=== PATIENT | male | born 1965 | race African-American/Black ===

== ENCOUNTER 2017-03-29 23:28 | Inpatient (IN) | payer SELFPAY ==
[~2017-03-29] VITALS: Ht 188 cm; Wt 68.0 kg
[2017-03-30] MEDS ORDERED: SODIUM CHLORIDE 0.9% 1,000 ML IV ONE (00:01)
[2017-03-30 00:19] LABS: EOSINOPHILS % 0.6 % (0.0-5.0); HEMATOCRIT. 36.5 % (42.0-52.0); HEMOGLOBIN. 12.5 g/dL (14.0-18.0); LYMPHOCYTES % 21.4 % (20.0-50.0); MEAN CORPUSCULAR HEMOGLOBIN 35.7 pg (28.0-32.0); MEAN CORPUSCULAR VOLUME 104.6 fL (80.0-94.0); MEAN PLATELET VOLUME 7.2 fl (7.4-10.4); MONOCYTES % 7.3 % (2.0-8.0); NEUTROPHILS % 69.7 % (40.0-76.0); PLATELET 261 x1000/uL (130-400); RED BLOOD CELL COUNT 3.49 mill/uL (4.7-6.1); RED CELL DISTRIBUTION WIDTH 13.4 % (11.6-14.6)
[2017-03-30 00:23] LABS: CLARITY URINE CLEAR (CLEAR); COLOR URINE YELLOW (YELLOW); GLUCOSE URINE NEGATIVE (NEGATIVE); KETONES URINE NEGATIVE (NEGATIVE); LEUKOCYTE ESTERASE URINE NEGATIVE (NEGATIVE); NITRITE URINE NEGATIVE (NEGATIVE); OCCULT BLOOD URINE NEGATIVE (NEGATIVE); PROTEIN URINE 1+ (NEGATIVE); SPECIFIC GRAVITY URINE 1.017 (1.005-1.030)
[2017-03-30 00:35] LABS: *AMPHETAMINES SCREEN URINE NEGATIVE (NEGATIVE); *BARBITURATES SCREEN URINE NEGATIVE (NEGATIVE); *BENZODIAZEPINES SCREEN URINE NEGATIVE (NEGATIVE); *COCAINE SCREEN URINE PRESUMTIVE POSITIVE (NEGATIVE); CANNABINOID URINE SCREEN PRESUMTIVE POSITIVE (NEGATIVE); METHADONE URINE SCREEN NEGATIVE (NEGATIVE); OPIATES URINE SCREEN NEGATIVE (NEGATIVE); PHENCYCLIDINE URINE SCREEN NEGATIVE (NEGATIVE)
[2017-03-30 00:37] LABS: CARBON DIOXIDE 28 mEq/L (21-32); CHLORIDE 99 mEq/L (98-107); ETHANOL BLOOD 251 mg/dL; TROPONIN I 0.02 ng/mL (0.00-0.04)
[2017-03-30] MEDS ORDERED: SODIUM CHLORIDE 0.9% 1,000 ML IV SCH (01:08)
[2017-03-30] MEDS ORDERED: DIPHENHYDRAMINE 50MG/ML VIAL IV PRN (05:15)
[2017-03-30] MEDS ORDERED: GUAIFENESIN 200MG/10ML SUGAR FREE UDC PO PRN (05:15)
[2017-03-30] MEDS ORDERED: ACETAMINOPHEN 325MG TABLET PO PRN (05:15)
[2017-03-30] MEDS ORDERED: ONDANSETRON HCL 4MG/2ML VIAL IV PRN (05:15)
[2017-03-30] MEDS ORDERED: HYDRALAZINE 20MG/ML VIAL IV PRN (05:15)
[2017-03-30] MEDS ORDERED: MAGNESIUM/ALUMINUM HYDROXIDE/SIMETHICONE 30ML UDC PO PRN (05:15)
[2017-03-30] MEDS ORDERED: LORAZEPAM 2MG/ML CPJ IV PRN (05:15)
[2017-03-30] MEDS: HYDRALAZINE 20MG/ML VIAL IV SCH ×3 (06:00→18:49)
[2017-03-30] MEDS: CLONIDINE 0.1MG TABLET PO PRN ×2 (06:31→21:09)
[2017-03-30 08:00] VITALS: BP 144/83
[2017-03-30 09:08] VITALS: BP 144/83
[2017-03-30] MEDS ORDERED: LORAZEPAM 1MG TABLET PO PRN (09:15)
[2017-03-30] MEDS ORDERED: LISI-604 PO (10:01)
[2017-03-30] MEDS ORDERED: PNEUMOCOCCAL 23-VAL P-SAC VAC 0.5 ML IM ONE (10:15)
[2017-03-30] MEDS ORDERED: INFLUENZA VIRUS VACCINE 0.5ML SYR IM ONE (10:15)
[2017-03-30] MEDS: LISINOPRIL 20MG TABLET PO SCH (10:43)
[2017-03-30] MEDS: SODIUM CHLORIDE 0.9% INJ 3ML FLUSH IVF SCH ×3 (10:44→21:14)
[2017-03-30 12:00] VITALS: BP 117/81
[2017-03-30] MEDS ORDERED: DEXTROSE 50% WATER 50ML SYRINGE IV PRN (15:45)
[2017-03-30 16:00] VITALS: BP 145/87
[2017-03-30] MEDS: BLOOD SUGAR DIAGNOSTIC STRIP TEST SCH ×2 (16:45→21:03)
[2017-03-30] MEDS: INSULIN LISPRO 100 UNITS/ML SUBCUT SCH ×2 (17:15→21:12)
[2017-03-30 20:00] VITALS: BP 172/102
[2017-03-31] VITALS: BP 148/92
[2017-03-31] MEDS: THIAMINE HCL 100MG TABLET PO SCH ×2 (00:24→10:17)
[2017-03-31] MEDS: HYDRALAZINE 20MG/ML VIAL IV SCH ×3 (00:27→12:25)
[2017-03-31] MEDS ORDERED: LOPERAMIDE HCL 2MG CAPSULE PO NR ×2 (00:45→06:15)
[2017-03-31 04:00] VITALS: BP 161/97
[2017-03-31] MEDS ORDERED: CHLORDIAZEPOXIDE 25MG CAPSULE PO SCH (06:00)
[2017-03-31] MEDS: BLOOD SUGAR DIAGNOSTIC STRIP TEST SCH ×2 (06:12→12:26)
[2017-03-31] MEDS: INSULIN LISPRO 100 UNITS/ML SUBCUT SCH ×2 (06:12→12:26)
[2017-03-31] MEDS: SODIUM CHLORIDE 0.9% INJ 3ML FLUSH IVF SCH (06:41)
[2017-03-31 08:00] VITALS: BP 137/84
[2017-03-31] MEDS: LISINOPRIL 20MG TABLET PO SCH (10:17)
[2017-03-31 12:00] VITALS: BP 142/86
[2017-03-31] MEDS ORDERED: LISINOPRIL 20MG TABLET PO NR (13:15)
[2017-03-31 14:49] VITALS: BP 142/86
[2017-03-31 16:00] VITALS: BP 118/72
== END 2017-03-31 15:25 | disposition home or self-care (01) | DRG 775 ==
LOC: ER 23:28 → 5WST 03-30 01:10 → EDBEDREQ 03-30 01:13 → EDBEDREQTM 03-30 01:13 → ENRESERV 03-30 06:44
PROVIDERS: ADMIT Internal Medicine; ATTEND Internal Medicine
DX: F10.230 Alcohol dependence with withdrawal, uncomplicated (principal); E11.22 Type 2 diabetes mellitus with diabetic chronic kidney disease; Y90.9 Presence of alcohol in blood, level not specified; I12.9 Hypertensive chronic kidney disease with stage 1 through stage 4 chronic kidney disease, or unspecified chronic kidney disease; G40.909 Epilepsy, unspecified, not intractable, without status epilepticus; N18.9 Chronic kidney disease, unspecified; Z88.0 Allergy status to penicillin
CPT/HCPCS: 36415; 70450; 71010; 80053; 80305; 81001; 82962; 83690; 84484; 85025; 90686; 90732; 93005; 96360; 96361; 99285; G0482; J0360; J1815; J7030

== ENCOUNTER 2018-02-28 08:42 | Inpatient (IN) | payer MEDICAID ==
[~2018-02-28] VITALS: Ht 188 cm; Wt 61.2 kg
[~2018-02-28 08:42] MED LIST: AMLO10TA80 PO; ESOM40CA PO; HYDR25TA PO; LISI40TA4 PO; METF-416 PO; METO1TAB26 PO; OMEP-265 PO; PROT40 PO; TRAM50TA3 PO; ZOLP5TAB2 PO
[2018-02-28] MEDS ORDERED: SODIUM CHLORIDE 0.9% 1000ML BAG (SEPSIS BOLUS) IV ONE (09:15)
[2018-02-28] MEDS ORDERED: PANTOPRAZOLE 80 MG in SODIUM CHLORIDE 0.9% 100 ML IV SCH (09:15)
[2018-02-28] MEDS ORDERED: PANTOPRAZOLE SODIUM 40 MG/VIAL IV ONE ×3 (09:15→10:53)
[2018-02-28] MEDS ORDERED: ONDANSETRON HCL 4MG/2ML INJ IV ONE (09:30)
[2018-02-28 09:50] LABS: BASOPHILS % 0.6 % (0.0-2.0); EOSINOPHILS % 0.5 % (0.0-5.0); HEMATOCRIT. 31.1 % (42.0-52.0); HEMOGLOBIN. 10.7 g/dL (14.0-18.0); LYMPHOCYTES % 18.7 % (20.0-50.0); MEAN CORPUSCULAR VOLUME 104.5 fL (80.0-94.0); MEAN PLATELET VOLUME 7.3 fl (7.4-10.4); NEUTROPHILS % 72.2 % (40.0-76.0); PLATELET 277 x1000/uL (130-400); RED BLOOD CELL COUNT 2.97 mill/uL (4.7-6.1); RED CELL DISTRIBUTION WIDTH 14.6 % (11.6-14.6)
[2018-02-28 09:58] LABS: INR 1.1; PROTHROMBIN TIME 10.9 sec (9.1-11.1)
[2018-02-28 10:02] LABS: CHLORIDE 91 mEq/L (98-107); ETHANOL BLOOD 210 mg/dL
[2018-02-28] MEDS ORDERED: SODIUM CHLORIDE 0.9% 1,000 ML IV ONE (10:40)
[2018-02-28] MEDS ORDERED: LEVOFLOXACIN 750MG PREMIX 150 ML IV ONE (10:45)
[2018-02-28] MEDS ORDERED: MAGNESIUM 4 G PREMIX 100 ML IV ONE (10:45)
[2018-02-28 12:42] LABS: CLARITY URINE CLEAR (CLEAR); COLOR URINE YELLOW (YELLOW); KETONES URINE NEGATIVE (NEGATIVE); LEUKOCYTE ESTERASE URINE NEGATIVE (NEGATIVE); NITRITE URINE NEGATIVE (NEGATIVE); OCCULT BLOOD URINE TRACE (NEGATIVE); PROTEIN URINE TRACE (NEGATIVE); SPECIFIC GRAVITY URINE 1.006 (1.005-1.030)
[2018-02-28] MEDS ORDERED: SODIUM CHLORIDE 0.9% 1,000 ML IV SCH (13:33)
[2018-02-28] MEDS ORDERED: CLONIDINE 0.1MG TABLET PO PRN ×2 (13:45→20:00)
[2018-02-28] MEDS ORDERED: LORAZEPAM 2MG/ML CPJ IV PRN (13:45)
[2018-02-28] MEDS ORDERED: PANTOPRAZOLE SODIUM 40 MG/VIAL IV SCH (13:45)
[2018-02-28] MEDS ORDERED: MAGNESIUM OXIDE 400MG TABLET PO SCH (13:45)
[2018-02-28] MEDS ORDERED: ONDANSETRON HCL 4MG/2ML INJ IV PRN ×2 (13:45→20:00)
[2018-02-28] MEDS ORDERED: ACETAMINOPHEN 325MG TABLET PO PRN (13:45)
[2018-02-28 18:25] VITALS: BP 120/83
[2018-02-28] MEDS ORDERED: POTASSIUM CHLORIDE INJ 30 MEQ in DEXT 5%/0.9% NACL 1,000 ML IV ONE (19:00)
[2018-02-28 19:43] LABS: *AMPHETAMINES SCREEN URINE NEGATIVE (NEGATIVE); *BARBITURATES SCREEN URINE NEGATIVE (NEGATIVE); *BENZODIAZEPINES SCREEN URINE NEGATIVE (NEGATIVE)
[2018-02-28 19:44] LABS: *COCAINE SCREEN URINE NEGATIVE (NEGATIVE); CANNABINOID URINE SCREEN PRESUMTIVE POSITIVE (NEGATIVE); METHADONE URINE SCREEN NEGATIVE (NEGATIVE); OPIATES URINE SCREEN NEGATIVE (NEGATIVE); PHENCYCLIDINE URINE SCREEN NEGATIVE (NEGATIVE)
[2018-02-28 20:00] VITALS: BP 113/76
[2018-02-28 20:15] LABS: CREATINE KINASE 189 IU/L (39-308); CREATINE KINASE MB FRACTION 3.4 ng/mL (0.5-3.6)
[2018-02-28] MEDS: PANTOPRAZOLE SODIUM 40 MG/VIAL IV SCH (21:03)
[2018-02-28] MEDS: MAGNESIUM OXIDE 400MG TABLET PO SCH (21:03)
[2018-02-28] MEDS: CHLORDIAZEPOXIDE 5 MG CAPSULE PO SCH (21:16)
[2018-02-28] MEDS: SODIUM CHLORIDE 0.9% 1,000 ML IV SCH (21:16)
[2018-02-28] MEDS: LORAZEPAM 2MG/ML CPJ IV PRN (22:02)
[2018-03-01] VITALS (9 sets, daily range): BP systolic 90–125; BP diastolic 47–90
[2018-03-01] MEDS ORDERED: OMEP40CA34 PO (00:43)
[2018-03-01] MEDS ORDERED: METR-218 PO (00:43)
[2018-03-01] MEDS ORDERED: LORA10TA7 PO (00:43)
[2018-03-01] MEDS ORDERED: ONDA4TAB50 PO (00:43)
[2018-03-01] MEDS ORDERED: LEVE500T78 PO (00:43)
[2018-03-01] MEDS ORDERED: FERR325T6 PO (00:43)
[2018-03-01] MEDS ORDERED: SIMV10TA6 PO (00:43)
[2018-03-01] MEDS ORDERED: HYDR-4001 PO (00:46)
[2018-03-01] MEDS ORDERED: CHLO25TA22 PO (00:46)
[2018-03-01] MEDS ORDERED: DEXTROSE 50% WATER 50ML SYRINGE IV PRN (03:30)
[2018-03-01 04:15] LABS: CREATINE KINASE 175 IU/L (39-308); CREATINE KINASE MB FRACTION 2.5 ng/mL (0.5-3.6)
[2018-03-01] MEDS: CHLORDIAZEPOXIDE 5 MG CAPSULE PO SCH (06:38)
[2018-03-01] MEDS: SODIUM CHLORIDE 0.9% 1,000 ML IV SCH (06:38)
[2018-03-01] MEDS: BLOOD SUGAR DIAGNOSTIC STRIP TEST SCH ×4 (06:39→20:59)
[2018-03-01] MEDS: INSULIN LISPRO 100 UNITS/ML SUBCUT SCH ×4 (07:50→21:00)
[2018-03-01] MEDS: PANTOPRAZOLE SODIUM 40 MG/VIAL IV SCH (08:56)
[2018-03-01] MEDS: ACETAMINOPHEN 325MG TABLET PO PRN (08:57)
[2018-03-01] MEDS: MAGNESIUM OXIDE 400MG TABLET PO SCH ×3 (08:57→18:55)
[2018-03-01] MEDS ORDERED: ENOXAPARIN 40MG/0.4ML SYR SUBCUT SCH (09:00)
[2018-03-01] MEDS: LEVOFLOXACIN 250MG PREMIX 50 ML IV SCH (13:40)
[2018-03-01] MEDS: CHLORDIAZEPOXIDE 25MG CAPSULE PO SCH ×2 (13:40→21:05)
[2018-03-01] MEDS: LEVETIRACETAM 500MG TABLET PO SCH ×2 (13:41→21:05)
[2018-03-01] MEDS: LORAZEPAM 2MG/ML CPJ IV PRN (14:10)
[2018-03-01] MEDS ORDERED: SODIUM CHLORIDE 0.9% 500 ML IV ONE (14:45)
[2018-03-01] MEDS: NICOTINE 7MG PATCH TD SCH (14:48)
[2018-03-01 16:37] LABS: BASOPHILS % 0.6 % (0.0-2.0); EOSINOPHILS % 1.3 % (0.0-5.0); HEMATOCRIT. 21.3 % (42.0-52.0); HEMOGLOBIN. 7.5 g/dL (14.0-18.0); MEAN CORPUSCULAR HEMOGLOBIN 36.9 pg (28.0-32.0); MEAN CORPUSCULAR VOLUME 104.1 fL (80.0-94.0); MONOCYTES % 8.5 % (2.0-8.0); NEUTROPHILS % 72.6 % (40.0-76.0); PLATELET 209 x1000/uL (130-400); RED BLOOD CELL COUNT 2.04 mill/uL (4.7-6.1); RED CELL DISTRIBUTION WIDTH 14.4 % (11.6-14.6)
[2018-03-01 17:08] LABS: FERRITIN > 1650 ng/mL (22-322)
[2018-03-01 17:11] LABS: HEPATITIS B SURFACE ANTIGEN NEGATIVE
[2018-03-01 17:38] LABS: HEPATITIS B CORE AB IGM NEGATIVE
[2018-03-01 17:40] LABS: HEPATITIS A AB IGM NEGATIVE (NEGATIVE)
[2018-03-01] MEDS ORDERED: FOLIC ACID 1 MG, THIAMINE HCL 100 MG, MVI, ADULT NO.1 10 ML in DEXTROSE 5% WATER 1,000 ML IV SCH ×4 (18:00)
[2018-03-01 18:15] LABS: CHLORIDE 100 mEq/L (98-107)
[2018-03-01 18:19] LABS: AMYLASE 54 IU/L (25-115)
[2018-03-01 18:28] LABS: PHOSPHORUS 1.1 mg/dL (2.5-4.9)
[2018-03-01 18:51] LABS: TOTAL IRON BINDING CAPACITY 156 ug/dL (250-450)
[2018-03-01 19:21] LABS: VITAMIN B12 SERUM 832 pg/mL (211-911)
[2018-03-01] MEDS: METOPROLOL TARTRATE 25MG TABLET PO SCH (20:54)
[2018-03-02] VITALS (9 sets, daily range): BP systolic 106–130; BP diastolic 72–94
[2018-03-02] MEDS: CHLORDIAZEPOXIDE 25MG CAPSULE PO SCH ×2 (06:11→13:00)
[2018-03-02] MEDS: ACETAMINOPHEN 325MG TABLET PO PRN (06:12)
[2018-03-02] MEDS: BLOOD SUGAR DIAGNOSTIC STRIP TEST SCH ×2 (06:15→12:59)
[2018-03-02] MEDS ORDERED: HYDROCODONE/ACETAMINOPHEN 5/325MG TABLET PO PRN (06:45)
[2018-03-02 06:54] LABS: BASOPHILS % 0.8 % (0.0-2.0); EOSINOPHILS % 1.1 % (0.0-5.0); HEMATOCRIT. 24.9 % (42.0-52.0); HEMOGLOBIN. 8.7 g/dL (14.0-18.0); LYMPHOCYTES % 17.8 % (20.0-50.0); MEAN CORPUSCULAR HEMOGLOBIN 34.2 pg (28.0-32.0); MEAN CORPUSCULAR VOLUME 97.8 fL (80.0-94.0); MONOCYTES % 8.3 % (2.0-8.0); PLATELET 199 x1000/uL (130-400); RED BLOOD CELL COUNT 2.55 mill/uL (4.7-6.1); RED CELL DISTRIBUTION WIDTH 20.8 % (11.6-14.6)
[2018-03-02 07:19] LABS: CHLORIDE 102 mEq/L (98-107)
[2018-03-02] MEDS: INSULIN LISPRO 100 UNITS/ML SUBCUT SCH ×2 (07:31→13:12)
[2018-03-02] MEDS ORDERED: MAGNESIUM SULFATE 2 GM in DEXTROSE 5% WATER 50 ML IV NR (09:00)
[2018-03-02] MEDS: METOPROLOL TARTRATE 25MG TABLET PO SCH (09:56)
[2018-03-02] MEDS: NICOTINE 7MG PATCH TD SCH (09:56)
[2018-03-02] MEDS: LEVETIRACETAM 500MG TABLET PO SCH (09:56)
[2018-03-02] MEDS: MAGNESIUM OXIDE 400MG TABLET PO SCH ×2 (09:56→12:59)
[2018-03-02] MEDS: PANTOPRAZOLE SODIUM 40 MG/VIAL IV SCH (09:59)
[2018-03-02] MEDS: LEVOFLOXACIN 250MG PREMIX 50 ML IV SCH (14:10)
[2018-03-03] MEDS ORDERED: LEVOFLOXACIN 500MG PREMIX 100 ML IV SCH (11:00)
== END 2018-03-02 17:10 | disposition home or self-care (01) | DRG 253 ==
LOC: ER 08:42 → 6WST 11:40 → EDBEDREQSVC 11:50 → EDBEDREQ 11:50 → ENRESERV 15:08
PROVIDERS: ADMIT Internal Medicine Nephrology; ATTEND Internal Medicine Nephrology
PROC: 30253N1 (ICD-10-PCS; principal; 2018-03-01)
DX: K92.2 Gastrointestinal hemorrhage, unspecified (principal); E43 Unspecified severe protein-calorie malnutrition; N17.9 Acute kidney failure, unspecified; E11.22 Type 2 diabetes mellitus with diabetic chronic kidney disease; K70.0 Alcoholic fatty liver; E83.42 Hypomagnesemia; G90.8 Other disorders of autonomic nervous system; E87.2 Acidosis; K86.1 Other chronic pancreatitis; E87.1 Hypo-osmolality and hyponatremia; E87.8 Other disorders of electrolyte and fluid balance, not elsewhere classified; D63.8 Anemia in other chronic diseases classified elsewhere; Y90.7 Blood alcohol level of 200-239 mg/100 ml; F12.90 Cannabis use, unspecified, uncomplicated; E78.5 Hyperlipidemia, unspecified; F41.9 Anxiety disorder, unspecified; D53.9 Nutritional anemia, unspecified; N18.9 Chronic kidney disease, unspecified; K21.9 Gastro-esophageal reflux disease without esophagitis; I13.10 Hypertensive heart and chronic kidney disease without heart failure, with stage 1 through stage 4 chronic kidney disease, or unspecified chronic kidney disease; Z68.1 Body mass index [BMI] 19.9 or less, adult; E78.00 Pure hypercholesterolemia, unspecified; F17.200 Nicotine dependence, unspecified, uncomplicated; F10.229 Alcohol dependence with intoxication, unspecified; Z71.41 Alcohol abuse counseling and surveillance of alcoholic; Z86.73 Personal history of transient ischemic attack (TIA), and cerebral infarction without residual deficits; Z79.899 Other long term (current) drug therapy; Z79.4 Long term (current) use of insulin; Z88.0 Allergy status to penicillin
CPT/HCPCS: 36415; 71045; 71250; 74176; 80048; 80076; 80305; 82105; 82150; 82248; 82270; 82378; 82550; 82553; 82607; 82728; 82746; 82962; 83036; 83540; 83550; 83605; 83735; 84100; 84145; 84484; 86301; 86705; 86709; 86803; 86850; 86900; 86920; 87340; 93005; 93306; 93970; 96361; 96365; 96366; 96367; 96368; 96375; 97162; 99291; C9113; G0482; J1815; J1956; J2060; J2405; J3411; J3475; J3490; J7030; J7040; J7050; J7060; J7070; P9016

== ENCOUNTER 2018-06-03 09:58 | Emergency (ER) | payer MEDICAID ==
[~2018-06-03] VITALS: Ht 188 cm; Wt 62.0 kg
[~2018-06-03 09:58] MED LIST changes: +CHLO25TA22 PO; +FERR325T6 PO; +HYDR-4001 PO; +LEVE500T78 PO; +LORA10TA7 PO; +METR-218 PO; +OMEP40CA34 PO; +ONDA4TAB50 PO; +SIMV10TA6 PO
[2018-06-03] MEDS ORDERED: SODIUM CHLORIDE 0.9% 1,000 ML IV ONE (12:09)
[2018-06-03] MEDS ORDERED: LEVETIRACETAM 1000MG/100ML 100 ML IV ONE (12:15)
[2018-06-03 12:45] LABS: BASOPHILS % 1.2 % (0.0-2.0); EOSINOPHILS % 0.6 % (0.0-5.0); HEMATOCRIT. 32.1 % (42.0-52.0); HEMOGLOBIN. 11.1 g/dL (14.0-18.0); LYMPHOCYTES % 19.5 % (20.0-50.0); MEAN CORPUSCULAR HEMOGLOBIN 38.7 pg (28.0-32.0); MEAN CORPUSCULAR VOLUME 112.1 fL (80.0-94.0); MEAN PLATELET VOLUME 8.6 fl (7.4-10.4); MONOCYTES % 7.1 % (2.0-8.0); NEUTROPHILS % 71.6 % (40.0-76.0); PLATELET 247 x1000/uL (130-400); RED BLOOD CELL COUNT 2.86 mill/uL (4.7-6.1); RED CELL DISTRIBUTION WIDTH 14.4 % (11.6-14.6)
[2018-06-03 12:47] LABS: CHLORIDE 95 mEq/L (98-107)
[2018-06-03 13:05] LABS: ETHANOL BLOOD 361 mg/dL
[2018-06-03 13:29] LABS: PLATELET ESTIMATE NORMAL
[2018-06-03 17:26] LABS: CLARITY URINE CLEAR (CLEAR); COLOR URINE DARK YELLOW (YELLOW); KETONES URINE NEGATIVE (NEGATIVE); LEUKOCYTE ESTERASE URINE NEGATIVE (NEGATIVE); NITRITE URINE NEGATIVE (NEGATIVE); OCCULT BLOOD URINE TRACE (NEGATIVE); PROTEIN URINE NEGATIVE (NEGATIVE); SPECIFIC GRAVITY URINE 1.009 (1.005-1.030)
[2018-06-03 17:36] LABS: *AMPHETAMINES SCREEN URINE NEGATIVE (NEGATIVE); *BARBITURATES SCREEN URINE NEGATIVE (NEGATIVE); *BENZODIAZEPINES SCREEN URINE NEGATIVE (NEGATIVE); *COCAINE SCREEN URINE NEGATIVE (NEGATIVE); CANNABINOID URINE SCREEN NEGATIVE (NEGATIVE); METHADONE URINE SCREEN NEGATIVE (NEGATIVE); PHENCYCLIDINE URINE SCREEN NEGATIVE (NEGATIVE)
[2018-06-03 17:37] LABS: OPIATES URINE SCREEN NEGATIVE (NEGATIVE)
[2018-06-03 18:22] VITALS: BP 104/61
== END 2018-06-03 18:24 | disposition home or self-care (01) ==
LOC: ER 09:58
DX: R53.1 Weakness (principal); R56.9 Unspecified convulsions; F10.129 Alcohol abuse with intoxication, unspecified; E11.9 Type 2 diabetes mellitus without complications; F17.200 Nicotine dependence, unspecified, uncomplicated; Z88.0 Allergy status to penicillin; Z98.890 Other specified postprocedural states
CPT/HCPCS: 36415; 70450; 71045; 73562; 74176; 80053; 80305; 81003; 85025; 87186; 96365; 96366; 99284; J1953; J7030

== ENCOUNTER 2018-06-17 02:49 | Inpatient (IN) | payer MEDICAID ==
[~2018-06-17] VITALS: Ht 188 cm; Wt 69.4 kg
[2018-06-17] MEDS ORDERED: SODIUM CHLORIDE 0.9% 1,000 ML IV ONE (03:20)
[2018-06-17] MEDS ORDERED: METOPROLOL TARTRATE 5MG/5ML VIAL IV SCH (03:30)
[2018-06-17 04:21] LABS: BASOPHILS % 0.4 % (0.0-2.0); HEMATOCRIT. 24.8 % (42.0-52.0); HEMOGLOBIN. 8.4 g/dL (14.0-18.0); MEAN CORPUSCULAR HEMOGLOBIN 39.8 pg (28.0-32.0); MEAN CORPUSCULAR VOLUME 117.1 fL (80.0-94.0); MONOCYTES % 5.9 % (2.0-8.0); NEUTROPHILS % 85.7 % (40.0-76.0); PLATELET 305 x1000/uL (130-400); RED BLOOD CELL COUNT 2.12 mill/uL (4.7-6.1)
[2018-06-17 04:27] LABS: CHLORIDE 96 mEq/L (98-107)
[2018-06-17] MEDS ORDERED: SODIUM CHLORIDE 0.9% 1000ML BAG (SEPSIS BOLUS) IV NR (05:00)
[2018-06-17] MEDS ORDERED: AZITHROMYCIN 500 MG in DEXT 5% WATER 250 ML IV SCH (05:45)
[2018-06-17] MEDS ORDERED: CEFTRIAXONE 1 G PREMIX 50 ML IV ONE (05:45)
[2018-06-17 06:11] LABS: PLATELET ESTIMATE NORMAL
[2018-06-17] MEDS ORDERED: IOHEXOL-350 100 ML BOTTLE ONE (06:42)
[2018-06-17] MEDS ORDERED: CLINDAMYCIN 600 MG in DEXTROSE 5% WATER 50 ML IV ONE (07:30)
[2018-06-17] MEDS: ONDANSETRON HCL 4MG/2ML INJ IV PRN (19:45)
[2018-06-17 21:30] VITALS: BP 112/62
[2018-06-17 22:00] VITALS: BP 112/62
[2018-06-17] MEDS ORDERED: NAPR-681 MT (23:03)
[2018-06-17] MEDS ORDERED: MULT-1116 MT (23:03)
[2018-06-17] MEDS ORDERED: LISI40TA4 MT (23:03)
[2018-06-17] MEDS ORDERED: AMLO10TA80 MT (23:03)
[2018-06-17] MEDS ORDERED: ASPI-1159 PO (23:03)
[2018-06-17] MEDS ORDERED: DULO30CA2 MT (23:03)
[2018-06-17] MEDS ORDERED: MORPHINE SULFATE 4 MG/ML CPJ (NOT FOR IM USE) IV PRN (23:15)
[2018-06-17] MEDS ORDERED: PIPERACILLIN/TAZ 3.375G PREMIX 50 ML IV SCH (23:15)
[2018-06-17] MEDS ORDERED: ONDANSETRON HCL 4MG/2ML INJ IV PRN (23:15)
[2018-06-17] MEDS ORDERED: DEXTROSE 50% WATER 50ML SYRINGE IV PRN (23:30)
[2018-06-18] VITALS (17 sets, daily range): BP systolic 97–151; BP diastolic 59–110
[2018-06-18] MEDS: CEFEPIME 1,000 MG in DEXTROSE 5% WATER 50 ML IV SCH ×3 (00:58→16:50)
[2018-06-18] MEDS ORDERED: VANCOMYCIN 1 G PREMIX 200 ML IV NR (01:00)
[2018-06-18] MEDS: OMEPRAZOLE 20MG CAPSULE EXTENDED RELEASE PO SCH (06:36)
[2018-06-18 06:52] LABS: CHLORIDE 97 mEq/L (98-107)
[2018-06-18 07:05] LABS: LDL CHOLESTEROL 63 mg/dL (5-100)
[2018-06-18 07:08] LABS: HDL CHOLESTEROL 12 mg/dL (40-59)
[2018-06-18] MEDS: INSULIN LISPRO 100 UNITS/ML SUBCUT SCH ×4 (08:00→21:34)
[2018-06-18] MEDS ORDERED: METFORMIN HCL 500MG TABLET PO SCH (08:00)
[2018-06-18] MEDS: BLOOD SUGAR DIAGNOSTIC STRIP TEST SCH ×4 (08:02→21:00)
[2018-06-18 08:09] LABS: MEAN CORPUSCULAR HEMOGLOBIN 39.5 pg (28.0-32.0); MEAN CORPUSCULAR VOLUME 117.4 fL (80.0-94.0); MEAN PLATELET VOLUME 8.4 fl (7.4-10.4); PLATELET 196 x1000/uL (130-400); RED BLOOD CELL COUNT 1.71 mill/uL (4.7-6.1); RED CELL DISTRIBUTION WIDTH 13.7 % (11.6-14.6)
[2018-06-18 08:15] LABS: HEMOGLOBIN. 6.8 g/dL (14.0-18.0)
[2018-06-18] MEDS ORDERED: ASPIRIN 81MG TABLET PO SCH (09:00)
[2018-06-18] MEDS: VANCOMYCIN 1 G PREMIX 200 ML IV SCH ×2 (09:00→16:49)
[2018-06-18] MEDS: LEVETIRACETAM 500MG TABLET PO SCH ×2 (09:36→16:51)
[2018-06-18] MEDS: DULOXETINE HCL 30MG DR CAPSULE PO SCH (09:37)
[2018-06-18] MEDS: ONDANSETRON HCL 4MG/2ML INJ IV PRN ×2 (09:44→17:06)
[2018-06-18] MEDS ORDERED: SODIUM CHLORIDE 10% FOR INH 15ML VIAL NEB INH SCH (12:45)
[2018-06-18] MEDS ORDERED: IPRATROPIUM/ALBUTEROL 0.5-3(2.5)MG/3ML NEB HHN PRN (13:00)
[2018-06-18 13:57] LABS: NUCLEATED RED BLOOD CELLS 1 /100 WBC; PLATELET ESTIMATE NORMAL
[2018-06-18 15:09] LABS: CLARITY URINE TURBID (CLEAR); COLOR URINE ORANGE (YELLOW); KETONES URINE NEGATIVE (NEGATIVE); LEUKOCYTE ESTERASE URINE 1+ (NEGATIVE); NITRITE URINE POSITIVE (NEGATIVE); OCCULT BLOOD URINE NEGATIVE (NEGATIVE); PH URINE 5.5 (4.5-8.0); PROTEIN URINE TRACE (NEGATIVE); SPECIFIC GRAVITY URINE 1.035 (1.005-1.030)
[2018-06-18 15:27] LABS: *AMPHETAMINES SCREEN URINE NEGATIVE (NEGATIVE)
[2018-06-18 15:28] LABS: *BARBITURATES SCREEN URINE NEGATIVE (NEGATIVE); *BENZODIAZEPINES SCREEN URINE NEGATIVE (NEGATIVE); *COCAINE SCREEN URINE NEGATIVE (NEGATIVE); METHADONE URINE SCREEN NEGATIVE (NEGATIVE); OPIATES URINE SCREEN NEGATIVE (NEGATIVE); PHENCYCLIDINE URINE SCREEN NEGATIVE (NEGATIVE)
[2018-06-18 15:29] LABS: CANNABINOID URINE SCREEN PRESUMTIVE POSITIVE (NEGATIVE)
[2018-06-18] MEDS: CLINDAMYCIN 600 MG in DEXTROSE 5% WATER 50 ML IV SCH ×2 (16:49→21:30)
[2018-06-18] MEDS: IPRATROPIUM/ALBUTEROL 0.5-3(2.5)MG/3ML NEB HHN SCH ×2 (16:57→21:12)
[2018-06-18 19:40] LABS: HEMATOCRIT 25.5 % (42.0-52.0); HEMOGLOBIN 8.7 g/dL (14.0-18.0)
[2018-06-18] MEDS ORDERED: NON FORMULARY PATIENT HOME MED PO SCH (21:00)
[2018-06-18] MEDS: ATORVASTATIN CALCIUM 10MG TABLET PO SCH (21:12)
[2018-06-18] MEDS: CEFEPIME 2,000 MG in DEXT 5% WATER 100 ML IV SCH (23:36)
[2018-06-19] VITALS (11 sets, daily range): BP systolic 104–172; BP diastolic 55–105
[2018-06-19] MEDS: METRONIDAZOLE 500 MG PREMIX 100 ML IV SCH ×4 (00:11→23:43)
[2018-06-19 00:58] LABS: HEMATOCRIT 23.8 % (42.0-52.0); HEMOGLOBIN 8.2 g/dL (14.0-18.0)
[2018-06-19] MEDS: VANCOMYCIN 1 G PREMIX 200 ML IV SCH ×2 (01:23→08:58)
[2018-06-19] MEDS: IPRATROPIUM/ALBUTEROL 0.5-3(2.5)MG/3ML NEB HHN SCH ×4 (02:01→21:50)
[2018-06-19] MEDS: OMEPRAZOLE 20MG CAPSULE EXTENDED RELEASE PO SCH (06:41)
[2018-06-19 07:00] LABS: HEMATOCRIT. 20.1 % (42.0-52.0)
[2018-06-19 07:08] LABS: BASOPHILS % 0.3 % (0.0-2.0); EOSINOPHILS % 0.4 % (0.0-5.0); HEMATOCRIT. 22.3 % (42.0-52.0); HEMOGLOBIN. 7.7 g/dL (14.0-18.0); LYMPHOCYTES % 10.5 % (20.0-50.0); MEAN CORPUSCULAR HEMOGLOBIN 35.3 pg (28.0-32.0); MEAN CORPUSCULAR VOLUME 101.6 fL (80.0-94.0); MEAN PLATELET VOLUME 8.5 fl (7.4-10.4); MONOCYTES % 7.3 % (2.0-8.0); NEUTROPHILS % 81.5 % (40.0-76.0); PLATELET 169 x1000/uL (130-400); RED BLOOD CELL COUNT 2.19 mill/uL (4.7-6.1); RED CELL DISTRIBUTION WIDTH 29.2 % (11.6-14.6)
[2018-06-19 07:12] LABS: CHLORIDE 94 mEq/L (98-107)
[2018-06-19] MEDS: INSULIN LISPRO 100 UNITS/ML SUBCUT SCH ×4 (07:39→21:00)
[2018-06-19] MEDS: BLOOD SUGAR DIAGNOSTIC STRIP TEST SCH ×4 (07:39→21:10)
[2018-06-19] MEDS: DULOXETINE HCL 30MG DR CAPSULE PO SCH (08:58)
[2018-06-19] MEDS: LEVETIRACETAM 500MG TABLET PO SCH ×2 (08:58→17:32)
[2018-06-19] MEDS: CEFEPIME 2,000 MG in DEXT 5% WATER 100 ML IV SCH ×2 (11:01→23:04)
[2018-06-19] MEDS: ONDANSETRON HCL 4MG/2ML INJ IV PRN (11:12)
[2018-06-19 11:45] LABS: HEMATOCRIT 22.3 % (42.0-52.0); HEMOGLOBIN 7.8 g/dL (14.0-18.0)
[2018-06-19] MEDS: VANCOMYCIN 1250MG in DEXTROSE 5% WATER 250ML IV SCH (17:33)
[2018-06-19] MEDS: ATORVASTATIN CALCIUM 10MG TABLET PO SCH (21:10)
[2018-06-20] VITALS (12 sets, daily range): BP systolic 108–155; BP diastolic 75–100
[2018-06-20] MEDS: VANCOMYCIN 1250MG in DEXTROSE 5% WATER 250ML IV SCH ×2 (06:25→17:58)
[2018-06-20 06:59] LABS: BASOPHILS % 0.1 % (0.0-2.0); EOSINOPHILS % 0.5 % (0.0-5.0); HEMATOCRIT. 22.7 % (42.0-52.0); HEMOGLOBIN. 7.8 g/dL (14.0-18.0); LYMPHOCYTES % 8.5 % (20.0-50.0); MEAN CORPUSCULAR HEMOGLOBIN 35.1 pg (28.0-32.0); MEAN CORPUSCULAR VOLUME 101.9 fL (80.0-94.0); MEAN PLATELET VOLUME 8.6 fl (7.4-10.4); MONOCYTES % 7.4 % (2.0-8.0); NEUTROPHILS % 83.5 % (40.0-76.0); PLATELET 163 x1000/uL (130-400); RED BLOOD CELL COUNT 2.22 mill/uL (4.7-6.1); RED CELL DISTRIBUTION WIDTH 29.1 % (11.6-14.6)
[2018-06-20 07:06] LABS: CHLORIDE 95 mEq/L (98-107)
[2018-06-20] MEDS: BLOOD SUGAR DIAGNOSTIC STRIP TEST SCH ×4 (07:30→20:21)
[2018-06-20] MEDS: INSULIN LISPRO 100 UNITS/ML SUBCUT SCH ×4 (08:35→20:32)
[2018-06-20] MEDS ORDERED: POTASSIUM CHLORIDE 20MEQ TABLET SR PO SCH (08:45)
[2018-06-20] MEDS: IPRATROPIUM/ALBUTEROL 0.5-3(2.5)MG/3ML NEB HHN SCH ×3 (08:50→20:39)
[2018-06-20] MEDS: CEFEPIME 2,000 MG in DEXT 5% WATER 100 ML IV SCH ×2 (09:57→23:32)
[2018-06-20] MEDS: METRONIDAZOLE 500 MG PREMIX 100 ML IV SCH ×3 (09:57→23:34)
[2018-06-20] MEDS: DULOXETINE HCL 30MG DR CAPSULE PO SCH (09:58)
[2018-06-20] MEDS: OMEPRAZOLE 20MG CAPSULE EXTENDED RELEASE PO SCH (09:58)
[2018-06-20] MEDS: LEVETIRACETAM 500MG TABLET PO SCH ×2 (09:59→16:11)
[2018-06-20 11:24] LABS: FOLIC ACID (FOLATE) SERUM 5.6 ng/mL (>5.38)
[2018-06-20] MEDS: ONDANSETRON HCL 4MG/2ML INJ IV PRN (16:10)
[2018-06-20] MEDS: ATORVASTATIN CALCIUM 10MG TABLET PO SCH (20:21)
[2018-06-21] VITALS (12 sets, daily range): BP systolic 81–144; BP diastolic 46–103
[2018-06-21] MEDS: IPRATROPIUM/ALBUTEROL 0.5-3(2.5)MG/3ML NEB HHN SCH ×3 (01:55→14:21)
[2018-06-21] MEDS: VANCOMYCIN 1250MG in DEXTROSE 5% WATER 250ML IV SCH (04:50)
[2018-06-21 05:44] LABS: HEMATOCRIT. 24.5 % (42.0-52.0); HEMOGLOBIN. 8.2 g/dL (14.0-18.0); MEAN CORPUSCULAR HEMOGLOBIN 34.7 pg (28.0-32.0); MEAN CORPUSCULAR VOLUME 103.2 fL (80.0-94.0); MEAN PLATELET VOLUME 8.8 fl (7.4-10.4); PLATELET 170 x1000/uL (130-400); RED BLOOD CELL COUNT 2.38 mill/uL (4.7-6.1); RED CELL DISTRIBUTION WIDTH 28.6 % (11.6-14.6)
[2018-06-21 06:00] LABS: CHLORIDE 94 mEq/L (98-107)
[2018-06-21 06:08] LABS: VANCOMYCIN TROUGH 23.8 ug/mL (5.0-10.0)
[2018-06-21] MEDS: BLOOD SUGAR DIAGNOSTIC STRIP TEST SCH ×4 (07:30→20:27)
[2018-06-21] MEDS: INSULIN LISPRO 100 UNITS/ML SUBCUT SCH ×4 (08:00→20:27)
[2018-06-21 09:13] LABS: PLATELET ESTIMATE NORMAL
[2018-06-21] MEDS: LEVETIRACETAM 500MG TABLET PO SCH ×2 (09:47→17:56)
[2018-06-21] MEDS: OMEPRAZOLE 20MG CAPSULE EXTENDED RELEASE PO SCH (09:47)
[2018-06-21] MEDS: DULOXETINE HCL 30MG DR CAPSULE PO SCH (09:47)
[2018-06-21] MEDS: ONDANSETRON HCL 4MG/2ML INJ IV PRN (10:54)
[2018-06-21] MEDS: CEFEPIME 2,000 MG in DEXT 5% WATER 100 ML IV SCH (10:55)
[2018-06-21] MEDS: METRONIDAZOLE 500 MG PREMIX 100 ML IV SCH ×2 (10:55→16:05)
[2018-06-21] MEDS ORDERED: BLOOD SUGAR DIAGNOSTIC STRIP TEST SCH (17:30)
[2018-06-21] MEDS: VANCOMYCIN 1 G PREMIX 200 ML IV SCH (17:56)
[2018-06-21] MEDS: GUAIFENESIN 600MG ER TABLET PO SCH (20:26)
[2018-06-22] VITALS (12 sets, daily range): BP systolic 96–150; BP diastolic 70–98
[2018-06-22] MEDS: CEFEPIME 2,000 MG in DEXT 5% WATER 100 ML IV SCH ×2 (00:06→11:14)
[2018-06-22] MEDS: METRONIDAZOLE 500 MG PREMIX 100 ML IV SCH ×3 (00:07→16:25)
[2018-06-22] MEDS: IPRATROPIUM/ALBUTEROL 0.5-3(2.5)MG/3ML NEB HHN SCH ×5 (01:49→21:33)
[2018-06-22 04:18] LABS: HIV SCREEN 4G Non Reactive (Non Reactive)
[2018-06-22] MEDS: VANCOMYCIN 1 G PREMIX 200 ML IV SCH ×2 (05:21→17:34)
[2018-06-22 06:50] LABS: CHLORIDE 95 mEq/L (98-107)
[2018-06-22 07:21] LABS: BASOPHILS % 0.2 % (0.0-2.0); EOSINOPHILS % 0.4 % (0.0-5.0); HEMOGLOBIN. 7.5 g/dL (14.0-18.0); LYMPHOCYTES % 11.2 % (20.0-50.0); MEAN CORPUSCULAR HEMOGLOBIN 35.5 pg (28.0-32.0); MEAN CORPUSCULAR VOLUME 103.8 fL (80.0-94.0); NEUTROPHILS % 79.2 % (40.0-76.0); PLATELET 134 x1000/uL (130-400); RED BLOOD CELL COUNT 2.12 mill/uL (4.7-6.1); RED CELL DISTRIBUTION WIDTH 28.5 % (11.6-14.6)
[2018-06-22] MEDS: INSULIN LISPRO 100 UNITS/ML SUBCUT SCH ×5 (08:00→21:00)
[2018-06-22] MEDS: BLOOD SUGAR DIAGNOSTIC STRIP TEST SCH ×4 (08:02→21:47)
[2018-06-22] MEDS: GUAIFENESIN 600MG ER TABLET PO SCH ×2 (08:34→21:51)
[2018-06-22] MEDS: OMEPRAZOLE 20MG CAPSULE EXTENDED RELEASE PO SCH (08:34)
[2018-06-22] MEDS: LEVETIRACETAM 500MG TABLET PO SCH ×2 (08:34→17:34)
[2018-06-22] MEDS: DULOXETINE HCL 30MG DR CAPSULE PO SCH (08:34)
[2018-06-22] MEDS: ACETYLCYSTEINE 100MG/ML 10% VIAL 4ML INH SCH (08:35)
[2018-06-22] MEDS: SUCRALFATE 1 G/10 ML UDC PO SCH ×3 (12:28→21:47)
[2018-06-23] VITALS (12 sets, daily range): BP systolic 116–172; BP diastolic 41–106
[2018-06-23] MEDS: CEFEPIME 2,000 MG in DEXT 5% WATER 100 ML IV SCH ×3 (00:10→23:11)
[2018-06-23] MEDS: METRONIDAZOLE 500 MG PREMIX 100 ML IV SCH ×3 (00:11→17:41)
[2018-06-23] MEDS: VANCOMYCIN 1 G PREMIX 200 ML IV SCH (05:13)
[2018-06-23] MEDS: BLOOD SUGAR DIAGNOSTIC STRIP TEST SCH ×4 (07:30→21:21)
[2018-06-23] MEDS: INSULIN LISPRO 100 UNITS/ML SUBCUT SCH ×4 (08:00→21:00)
[2018-06-23] MEDS: GUAIFENESIN 600MG ER TABLET PO SCH ×2 (08:43→21:15)
[2018-06-23] MEDS: SUCRALFATE 1 G/10 ML UDC PO SCH ×4 (08:43→21:15)
[2018-06-23] MEDS: OMEPRAZOLE 20MG CAPSULE EXTENDED RELEASE PO SCH (08:43)
[2018-06-23] MEDS: LEVETIRACETAM 500MG TABLET PO SCH ×2 (08:43→17:40)
[2018-06-23] MEDS: DULOXETINE HCL 30MG DR CAPSULE PO SCH (08:44)
[2018-06-23] MEDS: ONDANSETRON HCL 4MG/2ML INJ IV PRN (09:41)
[2018-06-23 10:22] LABS: HEMATOCRIT 22.8 % (42.0-52.0); HEMOGLOBIN 7.7 g/dL (14.0-18.0); MEAN CORPUSCULAR HEMOGLOBIN 35.1 pg (28.0-32.0); PLATELET 144 x1000/uL (130-400); RED BLOOD CELL COUNT 2.19 mill/uL (4.7-6.1); RED CELL DISTRIBUTION WIDTH 28.6 % (11.6-14.6)
[2018-06-23] MEDS: SODIUM CHLORIDE 0.9% 1,000 ML IV SCH (16:19)
[2018-06-24] VITALS (10 sets, daily range): BP systolic 120–160; BP diastolic 80–112
[2018-06-24] MEDS: METRONIDAZOLE 500 MG PREMIX 100 ML IV SCH ×3 (01:35→17:52)
[2018-06-24] MEDS: SODIUM CHLORIDE 0.9% 1,000 ML IV SCH ×2 (05:20→10:39)
[2018-06-24 07:01] LABS: HEMATOCRIT 22.3 % (42.0-52.0); HEMOGLOBIN 7.8 g/dL (14.0-18.0); MEAN CORPUSCULAR HEMOGLOBIN 36.2 pg (28.0-32.0); MEAN CORPUSCULAR VOLUME 102.9 fL (80.0-94.0); PLATELET 153 x1000/uL (130-400); RED BLOOD CELL COUNT 2.17 mill/uL (4.7-6.1); RED CELL DISTRIBUTION WIDTH 28.9 % (11.6-14.6)
[2018-06-24] MEDS: BLOOD SUGAR DIAGNOSTIC STRIP TEST SCH ×4 (07:30→20:28)
[2018-06-24 07:45] LABS: CHLORIDE 99 mEq/L (98-107)
[2018-06-24] MEDS: INSULIN LISPRO 100 UNITS/ML SUBCUT SCH ×4 (08:00→20:28)
[2018-06-24] MEDS: OMEPRAZOLE 20MG CAPSULE EXTENDED RELEASE PO SCH (08:41)
[2018-06-24] MEDS: LEVETIRACETAM 500MG TABLET PO SCH ×2 (08:41→17:52)
[2018-06-24] MEDS: GUAIFENESIN 600MG ER TABLET PO SCH ×2 (08:41→21:07)
[2018-06-24] MEDS: DULOXETINE HCL 30MG DR CAPSULE PO SCH (08:41)
[2018-06-24] MEDS: SUCRALFATE 1 G/10 ML UDC PO SCH ×4 (08:42→21:06)
[2018-06-24] MEDS: ACETYLCYSTEINE 100MG/ML 10% VIAL 4ML INH SCH ×2 (09:00→16:48)
[2018-06-24] MEDS ORDERED: NON FORMULARY PATIENT HOME MED XX SCH (09:45)
[2018-06-24] MEDS ORDERED: POTASSIUM CHLORIDE 20MEQ TABLET SR PO NR ×2 (11:00→12:00)
[2018-06-24] MEDS: CEFEPIME 2,000 MG in DEXT 5% WATER 100 ML IV SCH ×2 (12:14→22:14)
[2018-06-24] MEDS: DRONABINOL 2.5MG CAPSULE PO SCH (12:17)
[2018-06-24 14:16] LABS: QFT MITOGEN VALUE 0.05 IU/mL (.); QFT TB GOLD PLUS Indeterminate (Negative); QFT TB1 AG VALUE 0.03 IU/mL (.)
[2018-06-24] MEDS: IPRATROPIUM/ALBUTEROL 0.5-3(2.5)MG/3ML NEB HHN SCH ×2 (16:45→21:45)
[2018-06-24] MEDS ORDERED: CLONIDINE 0.1MG TABLET PO PRN (19:00)
[2018-06-24] MEDS: VANCOMYCIN 1250MG in DEXTROSE 5% WATER 250ML IV SCH (19:08)
[2018-06-24] MEDS: ACETAMINOPHEN 325MG TABLET PO PRN (21:07)
[2018-06-24] MEDS: ONDANSETRON HCL 4MG/2ML INJ IV PRN (21:11)
[2018-06-25] VITALS (13 sets, daily range): BP systolic 119–161; BP diastolic 72–116
[2018-06-25] MEDS: METRONIDAZOLE 500 MG PREMIX 100 ML IV SCH ×3 (01:48→17:27)
[2018-06-25] MEDS: ONDANSETRON HCL 4MG/2ML INJ IV PRN (02:37)
[2018-06-25] MEDS: ACETAMINOPHEN 325MG TABLET PO PRN (02:37)
[2018-06-25] MEDS: MORPHINE SULFATE 4 MG/ML CPJ (NOT FOR IM USE) IV PRN ×3 (04:38→17:29)
[2018-06-25] MEDS: SODIUM CHLORIDE 0.9% 1,000 ML IV SCH (04:39)
[2018-06-25 06:01] LABS: HEMATOCRIT. 22.3 % (42.0-52.0); HEMOGLOBIN. 7.6 g/dL (14.0-18.0); MEAN CORPUSCULAR VOLUME 103.4 fL (80.0-94.0); PLATELET 191 x1000/uL (130-400); RED BLOOD CELL COUNT 2.16 mill/uL (4.7-6.1); RED CELL DISTRIBUTION WIDTH 28.8 % (11.6-14.6)
[2018-06-25 06:23] LABS: CHLORIDE 100 mEq/L (98-107)
[2018-06-25] MEDS: BLOOD SUGAR DIAGNOSTIC STRIP TEST SCH ×4 (07:30→21:26)
[2018-06-25] MEDS: IPRATROPIUM/ALBUTEROL 0.5-3(2.5)MG/3ML NEB HHN SCH ×2 (07:45→14:55)
[2018-06-25] MEDS: INSULIN LISPRO 100 UNITS/ML SUBCUT SCH ×4 (08:00→21:37)
[2018-06-25 08:02] LABS: PLATELET ESTIMATE NORMAL
[2018-06-25] MEDS: SUCRALFATE 1 G/10 ML UDC PO SCH ×4 (09:00→21:26)
[2018-06-25] MEDS: OMEPRAZOLE 20MG CAPSULE EXTENDED RELEASE PO SCH (09:01)
[2018-06-25] MEDS: GUAIFENESIN 600MG ER TABLET PO SCH ×2 (09:01→21:26)
[2018-06-25] MEDS: DULOXETINE HCL 30MG DR CAPSULE PO SCH (09:01)
[2018-06-25] MEDS: LEVETIRACETAM 500MG TABLET PO SCH ×2 (09:01→17:27)
[2018-06-25] MEDS: DRONABINOL 2.5MG CAPSULE PO SCH (09:01)
[2018-06-25] MEDS: CEFEPIME 2,000 MG in DEXT 5% WATER 100 ML IV SCH ×2 (13:01→21:40)
[2018-06-25] MEDS: ACETYLCYSTEINE 100MG/ML 10% VIAL 4ML INH SCH (14:55)
[2018-06-25 17:06] LABS: HISTOPLASMA ABS QT DID Negative (Neg:<1:1)
[2018-06-25] MEDS: VANCOMYCIN 1250MG in DEXTROSE 5% WATER 250ML IV SCH (17:27)
[2018-06-25] MEDS: AMLODIPINE 5MG TABLET PO SCH (21:26)
[2018-06-26] VITALS (12 sets, daily range): BP systolic 85–126; BP diastolic 54–96
[2018-06-26] MEDS: METRONIDAZOLE 500 MG PREMIX 100 ML IV SCH ×3 (03:01→18:12)
[2018-06-26] MEDS: IPRATROPIUM/ALBUTEROL 0.5-3(2.5)MG/3ML NEB HHN SCH ×4 (05:00→21:00)
[2018-06-26] MEDS: SUCRALFATE 1 G/10 ML UDC PO SCH ×4 (06:43→21:33)
[2018-06-26] MEDS: OMEPRAZOLE 20MG CAPSULE EXTENDED RELEASE PO SCH (06:44)
[2018-06-26] MEDS: BLOOD SUGAR DIAGNOSTIC STRIP TEST SCH ×4 (07:30→21:34)
[2018-06-26] MEDS: INSULIN LISPRO 100 UNITS/ML SUBCUT SCH ×4 (08:00→21:00)
[2018-06-26] MEDS: ACETYLCYSTEINE 100MG/ML 10% VIAL 4ML INH SCH (08:55)
[2018-06-26] MEDS: DRONABINOL 2.5MG CAPSULE PO SCH (09:18)
[2018-06-26] MEDS: AMLODIPINE 5MG TABLET PO SCH (09:18)
[2018-06-26] MEDS: LEVETIRACETAM 500MG TABLET PO SCH ×2 (09:18→16:48)
[2018-06-26] MEDS: DULOXETINE HCL 30MG DR CAPSULE PO SCH (09:18)
[2018-06-26] MEDS: GUAIFENESIN 600MG ER TABLET PO SCH ×2 (09:18→21:34)
[2018-06-26 09:37] LABS: BASOPHILS % 0.1 % (0.0-2.0); EOSINOPHILS % 0.1 % (0.0-5.0); HEMATOCRIT. 25.7 % (42.0-52.0); HEMOGLOBIN. 8.6 g/dL (14.0-18.0); LYMPHOCYTES % 7.5 % (20.0-50.0); MEAN CORPUSCULAR HEMOGLOBIN 34.9 pg (28.0-32.0); MEAN CORPUSCULAR VOLUME 104.1 fL (80.0-94.0); MONOCYTES % 9.3 % (2.0-8.0); PLATELET 206 x1000/uL (130-400); RED BLOOD CELL COUNT 2.47 mill/uL (4.7-6.1)
[2018-06-26 09:40] LABS: CHLORIDE 102 mEq/L (98-107)
[2018-06-26] MEDS: MORPHINE SULFATE 4 MG/ML CPJ (NOT FOR IM USE) IV PRN ×2 (10:00→22:30)
[2018-06-26] MEDS: CEFEPIME 2,000 MG in DEXT 5% WATER 100 ML IV SCH ×2 (12:18→21:34)
[2018-06-26] MEDS ORDERED: DIGOXIN 500MCG/2ML AMP IV STA (13:11)
[2018-06-26] MEDS ORDERED: DILTIAZEM HCL 5MG/ML 5ML VIAL IV PRN (13:30)
[2018-06-26] MEDS: DILTIAZEM HCL 5MG/ML 5ML VIAL IV PRN ×2 (15:29→22:34)
[2018-06-26] MEDS ORDERED: DIGOXIN 500MCG/2ML AMP IV NR ×2 (15:30→17:30)
[2018-06-26] MEDS: VANCOMYCIN 1250MG in DEXTROSE 5% WATER 250ML IV SCH (16:56)
[2018-06-26] MEDS: DILTIAZEM HCL 30MG TABLET PO SCH ×2 (18:12→22:34)
[2018-06-26] MEDS: ONDANSETRON HCL 4MG/2ML INJ IV PRN (22:20)
[2018-06-27] VITALS (12 sets, daily range): BP systolic 101–129; BP diastolic 69–94
[2018-06-27] MEDS: IPRATROPIUM/ALBUTEROL 0.5-3(2.5)MG/3ML NEB HHN SCH ×3 (00:30→20:32)
[2018-06-27] MEDS: DILTIAZEM HCL 30MG TABLET PO SCH ×2 (06:00→12:26)
[2018-06-27 06:06] LABS: HEMATOCRIT. 24.7 % (42.0-52.0); HEMOGLOBIN. 8.3 g/dL (14.0-18.0); MEAN CORPUSCULAR HEMOGLOBIN 35.2 pg (28.0-32.0); MEAN CORPUSCULAR VOLUME 105.1 fL (80.0-94.0); MEAN PLATELET VOLUME 9.2 fl (7.4-10.4); PLATELET 199 x1000/uL (130-400); RED BLOOD CELL COUNT 2.35 mill/uL (4.7-6.1); RED CELL DISTRIBUTION WIDTH 28.3 % (11.6-14.6)
[2018-06-27 06:21] LABS: CHLORIDE 101 mEq/L (98-107)
[2018-06-27] MEDS: OMEPRAZOLE 20MG CAPSULE EXTENDED RELEASE PO SCH (07:13)
[2018-06-27] MEDS: SUCRALFATE 1 G/10 ML UDC PO SCH ×4 (07:13→21:31)
[2018-06-27] MEDS: INSULIN LISPRO 100 UNITS/ML SUBCUT SCH ×4 (08:00→22:00)
[2018-06-27] MEDS: BLOOD SUGAR DIAGNOSTIC STRIP TEST SCH ×4 (08:23→21:32)
[2018-06-27] MEDS: LEVETIRACETAM 500MG TABLET PO SCH ×2 (08:25→17:41)
[2018-06-27] MEDS: GUAIFENESIN 600MG ER TABLET PO SCH ×2 (08:25→21:31)
[2018-06-27] MEDS: DULOXETINE HCL 30MG DR CAPSULE PO SCH (08:25)
[2018-06-27] MEDS: DRONABINOL 2.5MG CAPSULE PO SCH (08:25)
[2018-06-27] MEDS: MORPHINE SULFATE 4 MG/ML CPJ (NOT FOR IM USE) IV PRN ×3 (09:14→21:57)
[2018-06-27 09:56] LABS: PLATELET ESTIMATE NORMAL
[2018-06-27] MEDS: DILTIAZEM HCL 60MG TABLET PO SCH ×2 (14:58→21:32)
[2018-06-27] MEDS: DIGOXIN 250MCG TABLET PO SCH (17:41)
[2018-06-27] MEDS: MEROPENEM 1,000 MG in SODIUM CHLORIDE 0.9% 100 ML IV SCH (17:42)
[2018-06-27] MEDS: VANCOMYCIN 1250MG in DEXTROSE 5% WATER 250ML IV SCH (18:45)
[2018-06-27] MEDS: ONDANSETRON HCL 4MG/2ML INJ IV PRN (21:58)
[2018-06-28] VITALS (12 sets, daily range): BP systolic 104–133; BP diastolic 73–95
[2018-06-28] MEDS: IPRATROPIUM/ALBUTEROL 0.5-3(2.5)MG/3ML NEB HHN SCH ×4 (01:01→21:27)
[2018-06-28] MEDS: MEROPENEM 1,000 MG in SODIUM CHLORIDE 0.9% 100 ML IV SCH ×3 (01:26→18:43)
[2018-06-28] MEDS: OMEPRAZOLE 20MG CAPSULE EXTENDED RELEASE PO SCH (05:49)
[2018-06-28] MEDS: DILTIAZEM HCL 60MG TABLET PO SCH ×3 (05:49→22:03)
[2018-06-28] MEDS: SUCRALFATE 1 G/10 ML UDC PO SCH ×4 (05:50→20:53)
[2018-06-28 06:52] LABS: HEMATOCRIT. 25.5 % (42.0-52.0); HEMOGLOBIN. 8.5 g/dL (14.0-18.0); MEAN CORPUSCULAR HEMOGLOBIN 35.3 pg (28.0-32.0); MEAN CORPUSCULAR VOLUME 105.7 fL (80.0-94.0); MEAN PLATELET VOLUME 9.1 fl (7.4-10.4); PLATELET 183 x1000/uL (130-400); RED BLOOD CELL COUNT 2.42 mill/uL (4.7-6.1); RED CELL DISTRIBUTION WIDTH 28.8 % (11.6-14.6)
[2018-06-28 07:21] LABS: CHLORIDE 103 mEq/L (98-107)
[2018-06-28] MEDS: MORPHINE SULFATE 4 MG/ML CPJ (NOT FOR IM USE) IV PRN ×2 (07:56→21:02)
[2018-06-28] MEDS: INSULIN LISPRO 100 UNITS/ML SUBCUT SCH ×4 (08:00→20:54)
[2018-06-28] MEDS: DRONABINOL 2.5MG CAPSULE PO SCH (08:01)
[2018-06-28] MEDS: GUAIFENESIN 600MG ER TABLET PO SCH ×2 (08:01→20:53)
[2018-06-28] MEDS: DULOXETINE HCL 30MG DR CAPSULE PO SCH (08:01)
[2018-06-28] MEDS: LEVETIRACETAM 500MG TABLET PO SCH ×2 (08:01→17:37)
[2018-06-28] MEDS: BLOOD SUGAR DIAGNOSTIC STRIP TEST SCH ×4 (08:26→20:54)
[2018-06-28] MEDS ORDERED: POTASSIUM CHLORIDE 20MEQ TABLET SR PO SCH (09:30)
[2018-06-28 15:27] LABS: AMYLASE 22 IU/L (25-115)
[2018-06-28] MEDS: VANCOMYCIN 1250MG in DEXTROSE 5% WATER 250ML IV SCH (17:38)
[2018-06-28 18:20] LABS: NUCLEATED RED BLOOD CELLS 2 /100 WBC
[2018-06-28 18:21] LABS: PLATELET ESTIMATE NORMAL
[2018-06-28] MEDS: DIGOXIN 250MCG TABLET PO SCH (18:40)
[2018-06-28 19:30] LABS: CLARITY URINE TURBID (CLEAR); COLOR URINE DARK YELLOW (YELLOW); KETONES URINE TRACE (NEGATIVE); LEUKOCYTE ESTERASE URINE NEGATIVE (NEGATIVE); NITRITE URINE NEGATIVE (NEGATIVE); OCCULT BLOOD URINE NEGATIVE (NEGATIVE); PROTEIN URINE 1+ (NEGATIVE); UROBILINOGEN URINE 0.2 E.U./dL (0.2-1.0)
[2018-06-29] VITALS (12 sets, daily range): BP systolic 124–138; BP diastolic 26–105
[2018-06-29] MEDS: IPRATROPIUM/ALBUTEROL 0.5-3(2.5)MG/3ML NEB HHN SCH ×2 (01:23→21:35)
[2018-06-29] MEDS: MEROPENEM 1,000 MG in SODIUM CHLORIDE 0.9% 100 ML IV SCH ×3 (01:41→18:10)
[2018-06-29] MEDS: DILTIAZEM HCL 60MG TABLET PO SCH ×3 (05:59→21:26)
[2018-06-29 07:01] LABS: HEMOGLOBIN. 8.4 g/dL (14.0-18.0); MEAN CORPUSCULAR HEMOGLOBIN 34.2 pg (28.0-32.0); MEAN CORPUSCULAR VOLUME 105.3 fL (80.0-94.0); MEAN PLATELET VOLUME 9.1 fl (7.4-10.4); PLATELET 202 x1000/uL (130-400); RED BLOOD CELL COUNT 2.47 mill/uL (4.7-6.1); RED CELL DISTRIBUTION WIDTH 28.3 % (11.6-14.6)
[2018-06-29] MEDS: BLOOD SUGAR DIAGNOSTIC STRIP TEST SCH ×4 (07:30→21:26)
[2018-06-29 07:43] LABS: CHLORIDE 103 mEq/L (98-107)
[2018-06-29] MEDS: INSULIN LISPRO 100 UNITS/ML SUBCUT SCH ×4 (08:00→21:00)
[2018-06-29] MEDS: SUCRALFATE 1 G/10 ML UDC PO SCH ×4 (09:08→21:25)
[2018-06-29] MEDS: GUAIFENESIN 600MG ER TABLET PO SCH ×2 (09:08→21:26)
[2018-06-29] MEDS: LEVETIRACETAM 500MG TABLET PO SCH ×2 (09:09→18:10)
[2018-06-29] MEDS: OMEPRAZOLE 20MG CAPSULE EXTENDED RELEASE PO SCH (09:09)
[2018-06-29] MEDS: DRONABINOL 2.5MG CAPSULE PO SCH (10:37)
[2018-06-29] MEDS: DULOXETINE HCL 30MG DR CAPSULE PO SCH (10:37)
[2018-06-29] MEDS: DIGOXIN 250MCG TABLET PO SCH (18:35)
[2018-06-29] MEDS: MORPHINE SULFATE 4 MG/ML CPJ (NOT FOR IM USE) IV PRN (18:50)
[2018-06-29 18:52] LABS: PLATELET ESTIMATE NORMAL
[2018-06-29] MEDS ORDERED: VANCOMYCIN 1250MG in DEXTROSE 5% WATER 250ML IV SCH (21:00)
[2018-06-29] MEDS ORDERED: MORPHINE SULFATE 4 MG/ML CPJ (NOT FOR IM USE) IV PRN (21:13)
[2018-06-30] VITALS (8 sets, daily range): BP systolic 116–141; BP diastolic 81–103
[2018-06-30] MEDS: IPRATROPIUM/ALBUTEROL 0.5-3(2.5)MG/3ML NEB HHN SCH (02:02)
[2018-06-30] MEDS: MEROPENEM 1,000 MG in SODIUM CHLORIDE 0.9% 100 ML IV SCH ×2 (03:03→10:07)
[2018-06-30] MEDS: DILTIAZEM HCL 60MG TABLET PO SCH ×2 (05:41→15:16)
[2018-06-30 06:48] LABS: HEMATOCRIT. 26.9 % (42.0-52.0); HEMOGLOBIN. 8.9 g/dL (14.0-18.0); MEAN CORPUSCULAR VOLUME 105.7 fL (80.0-94.0); MEAN PLATELET VOLUME 9.4 fl (7.4-10.4); PLATELET 203 x1000/uL (130-400); RED BLOOD CELL COUNT 2.55 mill/uL (4.7-6.1); RED CELL DISTRIBUTION WIDTH 27.3 % (11.6-14.6)
[2018-06-30 07:02] LABS: CHLORIDE 103 mEq/L (98-107)
[2018-06-30] MEDS: BLOOD SUGAR DIAGNOSTIC STRIP TEST SCH ×2 (07:50→12:30)
[2018-06-30] MEDS: INSULIN LISPRO 100 UNITS/ML SUBCUT SCH ×2 (07:51→13:00)
[2018-06-30] MEDS: GUAIFENESIN 600MG ER TABLET PO SCH (08:06)
[2018-06-30] MEDS: LEVETIRACETAM 500MG TABLET PO SCH (08:06)
[2018-06-30] MEDS: DULOXETINE HCL 30MG DR CAPSULE PO SCH (08:06)
[2018-06-30] MEDS: DRONABINOL 2.5MG CAPSULE PO SCH (08:06)
[2018-06-30] MEDS: SUCRALFATE 1 G/10 ML UDC PO SCH ×2 (08:06→13:59)
[2018-06-30] MEDS: OMEPRAZOLE 20MG CAPSULE EXTENDED RELEASE PO SCH (08:07)
[2018-06-30 10:29] LABS: PLATELET ESTIMATE NORMAL
[2018-07-01 07:23] LABS: QFT MITOGEN VALUE 0.08 IU/mL (.); QFT TB GOLD PLUS Indeterminate (Negative); QFT TB1 AG VALUE 0.03 IU/mL (.)
== END 2018-06-30 18:05 | disposition home health service (06) | DRG 720 ==
LOC: ER 02:49 → 5EST 06:33 → EDBEDREQTM 06:34 → EDBEDREQ 06:34 → EDBEDREQSVC 06:34 → ENRESERV 20:14 → 5EST 06-19 15:20
PROVIDERS: ADMIT Internal Medicine; ATTEND Internal Medicine
PROC: 30233N1 Transfusion of Nonautologous Red Blood Cells into Peripheral Vein, Percutaneous Approach (ICD-10-PCS; principal; 2018-06-18)
DX: A41.9 Sepsis, unspecified organism (principal); J96.00 Acute respiratory failure, unspecified whether with hypoxia or hypercapnia; E43 Unspecified severe protein-calorie malnutrition; J85.1 Abscess of lung with pneumonia; E87.2 Acidosis; I11.0 Hypertensive heart disease with heart failure; R64 Cachexia; K86.1 Other chronic pancreatitis; E87.1 Hypo-osmolality and hyponatremia; E87.8 Other disorders of electrolyte and fluid balance, not elsewhere classified; I50.22 Chronic systolic (congestive) heart failure; D64.9 Anemia, unspecified; E11.9 Type 2 diabetes mellitus without complications; F10.10 Alcohol abuse, uncomplicated; E87.6 Hypokalemia; F17.210 Nicotine dependence, cigarettes, uncomplicated; G40.909 Epilepsy, unspecified, not intractable, without status epilepticus; I48.91 Unspecified atrial fibrillation; R25.1 Tremor, unspecified; K76.0 Fatty (change of) liver, not elsewhere classified; R26.2 Difficulty in walking, not elsewhere classified; N39.0 Urinary tract infection, site not specified; Z68.1 Body mass index [BMI] 19.9 or less, adult; Z78.9 Other specified health status; Z86.73 Personal history of transient ischemic attack (TIA), and cerebral infarction without residual deficits; Z87.11 Personal history of peptic ulcer disease; Z87.19 Personal history of other diseases of the digestive system; Z91.14 Patient's other noncompliance with medication regimen; Z88.0 Allergy status to penicillin; Z79.899 Other long term (current) drug therapy; Z71.41 Alcohol abuse counseling and surveillance of alcoholic
CPT/HCPCS: 36415; 71045; 71275; 74174; 80048; 80061; 80076; 80202; 80305; 82150; 82270; 82607; 82746; 82962; 83036; 83605; 83880; 84145; 84484; 85014; 85018; 85027; 86480; 86606; 86698; 86850; 86900; 86920; 87116; 87389; 87449; 93005; 93306; 93970; 94640; 96365; 96366; 96375; 97110; 97162; 97530; 97535; 99285; C1893; J0456; J0692; J0696; J1160; J1815; J2185; J2270; J2405; J3370; J3490; J7030; J7040; J7050; J7060; J7131; J7608; J7620; P9016; Q0167; Q9967

== ENCOUNTER 2018-07-07 18:14 | Inpatient (IN) | payer MEDICAID ==
[~2018-07-07] VITALS: Ht 182.9 cm; Wt 75.3 kg
[~2018-07-07 18:14] MED LIST changes: -AMLO10TA80 PO; +ASPI-1159 PO; -CHLO25TA22 PO; +DULO30CA2 MT; -ESOM40CA PO; -FERR325T6 PO; -HYDR25TA PO; -LISI40TA4 PO; -METO1TAB26 PO; -METR-218 PO; +MULT-1116 MT; -OMEP-265 PO; -PROT40 PO
[2018-07-07] MEDS ORDERED: SODIUM CHLORIDE 0.9% 1,000 ML IV ONE ×2 (18:54→21:31)
[2018-07-07] MEDS ORDERED: ONDANSETRON HCL 4MG/2ML INJ IV STA (18:54)
[2018-07-07 19:21] LABS: BASOPHILS % 0.3 % (0.0-2.0); EOSINOPHILS % 0.2 % (0.0-5.0); HEMATOCRIT. 26.4 % (42.0-52.0); HEMOGLOBIN. 8.9 g/dL (14.0-18.0); LYMPHOCYTES % 15.3 % (20.0-50.0); MEAN CORPUSCULAR HEMOGLOBIN 34.9 pg (28.0-32.0); MEAN CORPUSCULAR VOLUME 103.6 fL (80.0-94.0); MEAN PLATELET VOLUME 9.7 fl (7.4-10.4); MONOCYTES % 3.4 % (2.0-8.0); NEUTROPHILS % 80.8 % (40.0-76.0); PLATELET 309 x1000/uL (130-400); RED BLOOD CELL COUNT 2.55 mill/uL (4.7-6.1); RED CELL DISTRIBUTION WIDTH 21.6 % (11.6-14.6)
[2018-07-07 19:26] LABS: CHLORIDE 95 mEq/L (98-107)
[2018-07-07 19:27] LABS: INR 1.9; PROTHROMBIN TIME 18.6 sec (9.1-11.1)
[2018-07-07] MEDS ORDERED: MEROPENEM 1,000 MG in SODIUM CHLORIDE 0.9% 100 ML IV ONE (21:00)
[2018-07-07] MEDS ORDERED: VANCOMYCIN 1 G PREMIX 200 ML IV ONE (21:00)
[2018-07-07 21:17] LABS: CLARITY URINE CLEAR (CLEAR); COLOR URINE ORANGE (YELLOW); KETONES URINE NEGATIVE (NEGATIVE); LEUKOCYTE ESTERASE URINE 1+ (NEGATIVE); NITRITE URINE POSITIVE (NEGATIVE); OCCULT BLOOD URINE NEGATIVE (NEGATIVE); PH URINE 5.5 (4.5-8.0); PROTEIN URINE 1+ (NEGATIVE); SPECIFIC GRAVITY URINE 1.018 (1.005-1.030); UROBILINOGEN URINE 0.2 E.U./dL (0.2-1.0)
[2018-07-07] MEDS ORDERED: IPRATROPIUM/ALBUTEROL 0.5-3(2.5)MG/3ML NEB INH PRN (21:45)
[2018-07-07] MEDS ORDERED: MAGNESIUM/ALUMINUM HYDROXIDE/SIMETHICONE 30ML UDC PO PRN (21:45)
[2018-07-07] MEDS ORDERED: CLONIDINE 0.1MG TABLET PO PRN (21:45)
[2018-07-07] MEDS ORDERED: VANCOMYCIN 1 G PREMIX 200 ML IV SCH (21:45)
[2018-07-07] MEDS ORDERED: DOCUSATE SODIUM 100MG CAPSULE PO PRN (21:45)
[2018-07-07 22:27] LABS: CREATINE KINASE MB FRACTION 4.4 ng/mL (0.5-3.6)
[2018-07-07] MEDS ORDERED: MEROPENEM 1,000 MG in SODIUM CHLORIDE 0.9% 100 ML IV SCH (23:30)
[2018-07-08 01:00] VITALS: BP 130/87
[2018-07-08] MEDS ORDERED: MAGNESIUM 2 G PREMIX 50 ML IV SCH (01:00)
[2018-07-08] MEDS: SODIUM CHLORIDE 0.9% 1,000 ML IV SCH ×2 (01:59→16:20)
[2018-07-08] MEDS: PIPERACILLIN/TAZ 3.375G PREMIX 50 ML IV SCH ×2 (02:35→11:50)
[2018-07-08] MEDS ORDERED: VANCOMYCIN 1250MG in DEXTROSE 5% WATER 250ML IV SCH (03:00)
[2018-07-08 04:54] VITALS: BP 125/87
[2018-07-08 07:54] LABS: BASOPHILS % 0.1 % (0.0-2.0); EOSINOPHILS % 0.4 % (0.0-5.0); HEMATOCRIT. 23.8 % (42.0-52.0); HEMOGLOBIN. 7.8 g/dL (14.0-18.0); LYMPHOCYTES % 18.3 % (20.0-50.0); MEAN CORPUSCULAR HEMOGLOBIN 34.7 pg (28.0-32.0); MEAN CORPUSCULAR VOLUME 105.5 fL (80.0-94.0); MEAN PLATELET VOLUME 10.1 fl (7.4-10.4); MONOCYTES % 3.8 % (2.0-8.0); NEUTROPHILS % 77.4 % (40.0-76.0); PLATELET 252 x1000/uL (130-400); RED BLOOD CELL COUNT 2.26 mill/uL (4.7-6.1); RED CELL DISTRIBUTION WIDTH 22.4 % (11.6-14.6)
[2018-07-08 08:00] VITALS: BP 122/89
[2018-07-08 08:26] LABS: INR 1.7; PARTIAL THROMBOPLASTIN TIME 37.2 sec (23.4-31.0); PROTHROMBIN TIME 16.8 sec (9.1-11.1)
[2018-07-08] MEDS: METRONIDAZOLE 500 MG PREMIX 100 ML IV SCH ×3 (09:18→23:09)
[2018-07-08] MEDS: ENOXAPARIN 40MG/0.4ML SYR SUBCUT SCH (09:18)
[2018-07-08 09:25] LABS: CHLORIDE 97 mEq/L (98-107)
[2018-07-08 09:48] LABS: LDL CHOLESTEROL 71 mg/dL (5-100)
[2018-07-08 09:49] LABS: CREATINE KINASE 64 IU/L (39-308); HDL CHOLESTEROL 9 mg/dL (40-59)
[2018-07-08 09:52] LABS: CREATINE KINASE MB FRACTION 4.8 ng/mL (0.5-3.6)
[2018-07-08 12:00] VITALS: BP 124/81
[2018-07-08 14:37] LABS: *AMPHETAMINES SCREEN URINE NEGATIVE (NEGATIVE); *BARBITURATES SCREEN URINE NEGATIVE (NEGATIVE); *BENZODIAZEPINES SCREEN URINE NEGATIVE (NEGATIVE); *COCAINE SCREEN URINE PRESUMTIVE POSITIVE (NEGATIVE); CANNABINOID URINE SCREEN PRESUMTIVE POSITIVE (NEGATIVE)
[2018-07-08 14:38] LABS: METHADONE URINE SCREEN NEGATIVE (NEGATIVE); OPIATES URINE SCREEN NEGATIVE (NEGATIVE); PHENCYCLIDINE URINE SCREEN NEGATIVE (NEGATIVE)
[2018-07-08 16:00] VITALS: BP 121/62
[2018-07-08] MEDS ORDERED: DIATR MEGLU/DIATRIZOATE SOLN 30ML PO NR (16:45)
[2018-07-08] MEDS: NICOTINE 14MG PATCH TD SCH (18:21)
[2018-07-08] MEDS: FOLIC ACID/VITAMIN B COMP W-C TABLET PO SCH (18:21)
[2018-07-08] MEDS: MULTIVITAMINS,THER W-MINERALS TABLET PO SCH (18:21)
[2018-07-08] MEDS: THIAMINE HCL 100MG TABLET PO SCH (18:21)
[2018-07-08 20:00] VITALS: BP 141/98
[2018-07-08] MEDS: IPRATROPIUM/ALBUTEROL 0.5-3(2.5)MG/3ML NEB HHN SCH (21:00)
[2018-07-08] MEDS: ONDANSETRON HCL 4MG/2ML INJ IV PRN (22:02)
[2018-07-08] MEDS: ACETAMINOPHEN 325MG TABLET PO PRN (22:03)
[2018-07-08] MEDS: GUAIFENESIN 200MG/10ML SUGAR FREE UDC PO PRN (23:19)
[2018-07-09] VITALS: BP 135/60
[2018-07-09] MEDS ORDERED: HYDROCODONE/ACETAMINOPHEN 5/325MG TABLET PO PRN
[2018-07-09] MEDS ORDERED: VANCOMYCIN 1250MG in DEXTROSE 5% WATER 250ML IV SCH ×2
[2018-07-09] MEDS: ZOLPIDEM TARTRATE 5MG TABLET PO PRN (00:49)
[2018-07-09] MEDS: PIPERACILLIN/TAZ 3.375G PREMIX 50 ML IV SCH ×3 (01:40→19:51)
[2018-07-09] MEDS: IPRATROPIUM/ALBUTEROL 0.5-3(2.5)MG/3ML NEB HHN SCH ×4 (02:44→13:55)
[2018-07-09 04:00] VITALS: BP 132/85
[2018-07-09 08:00] VITALS: BP 126/92
[2018-07-09] MEDS: METRONIDAZOLE 500 MG PREMIX 100 ML IV SCH ×2 (08:38→16:09)
[2018-07-09] MEDS: THIAMINE HCL 100MG TABLET PO SCH (10:19)
[2018-07-09] MEDS: MULTIVITAMINS,THER W-MINERALS TABLET PO SCH (10:19)
[2018-07-09] MEDS: FOLIC ACID/VITAMIN B COMP W-C TABLET PO SCH (10:19)
[2018-07-09] MEDS: NICOTINE 14MG PATCH TD SCH (10:20)
[2018-07-09] MEDS: ENOXAPARIN 40MG/0.4ML SYR SUBCUT SCH (10:20)
[2018-07-09] MEDS ORDERED: IOHEXOL-300 100 ML BOTTLE ONE (11:17)
[2018-07-09 12:00] VITALS: BP 107/70
[2018-07-09] MEDS ORDERED: BENZONATATE 100MG CAPSULE PO PRN (12:15)
[2018-07-09] MEDS ORDERED: CEFTRIAXONE 1 G PREMIX 50 ML IV SCH (12:15)
[2018-07-09] MEDS: PANTOPRAZOLE SODIUM 40 MG/VIAL IV SCH ×2 (12:43→18:13)
[2018-07-09] MEDS: MORPHINE SULFATE 4 MG/ML CPJ (NOT FOR IM USE) IV PRN ×2 (12:45→18:27)
[2018-07-09 13:12] LABS: CHLORIDE 98 mEq/L (98-107)
[2018-07-09 16:00] VITALS: BP 112/74
[2018-07-09] MEDS: GUAIFENESIN 200MG/10ML SUGAR FREE UDC PO PRN (16:09)
[2018-07-09 16:28] LABS: HEMOGLOBIN 7.9 g/dL (14.0-18.0); MEAN CORPUSCULAR HEMOGLOBIN 34.7 pg (28.0-32.0); MEAN CORPUSCULAR VOLUME 105.5 fL (80.0-94.0); PLATELET 251 x1000/uL (130-400); RED BLOOD CELL COUNT 2.28 mill/uL (4.7-6.1); RED CELL DISTRIBUTION WIDTH 21.2 % (11.6-14.6)
[2018-07-09 16:33] LABS: INR 1.7; PROTHROMBIN TIME 17.4 sec (9.1-11.1)
[2018-07-09 16:39] LABS: TOTAL IRON BINDING CAPACITY 68 ug/dL (250-450)
[2018-07-09] MEDS: VANCOMYCIN 1250MG in DEXTROSE 5% WATER 250ML IV SCH (18:12)
[2018-07-09] MEDS: SODIUM CHLORIDE 0.9% 1,000 ML IV SCH (19:51)
[2018-07-09 20:00] VITALS: BP 115/76
[2018-07-10] VITALS (9 sets, daily range): BP systolic 115–135; BP diastolic 75–89
[2018-07-10 00:01] LABS: HEMATOCRIT 21.1 % (42.0-52.0); MEAN CORPUSCULAR HEMOGLOBIN 34.1 pg (28.0-32.0); MEAN CORPUSCULAR VOLUME 104.1 fL (80.0-94.0); PLATELET 236 x1000/uL (130-400); RED BLOOD CELL COUNT 2.03 mill/uL (4.7-6.1); RED CELL DISTRIBUTION WIDTH 22.2 % (11.6-14.6)
[2018-07-10 00:10] LABS: HEMOGLOBIN 6.9 g/dL (14.0-18.0)
[2018-07-10] MEDS: ZOLPIDEM TARTRATE 5MG TABLET PO PRN ×2 (00:34→23:17)
[2018-07-10] MEDS: ACETAMINOPHEN 325MG TABLET PO PRN (00:35)
[2018-07-10] MEDS: METRONIDAZOLE 500 MG PREMIX 100 ML IV SCH (00:35)
[2018-07-10] MEDS: IPRATROPIUM/ALBUTEROL 0.5-3(2.5)MG/3ML NEB HHN SCH ×3 (02:22→14:38)
[2018-07-10] MEDS: PIPERACILLIN/TAZ 3.375G PREMIX 50 ML IV SCH ×3 (03:54→18:36)
[2018-07-10] MEDS: SODIUM CHLORIDE 0.9% 1,000 ML IV SCH (03:55)
[2018-07-10 07:12] LABS: HEMATOCRIT. 26.3 % (42.0-52.0); HEMOGLOBIN. 8.6 g/dL (14.0-18.0); MEAN CORPUSCULAR VOLUME 100.4 fL (80.0-94.0); PLATELET 258 x1000/uL (130-400); RED BLOOD CELL COUNT 2.62 mill/uL (4.7-6.1); RED CELL DISTRIBUTION WIDTH 21.5 % (11.6-14.6)
[2018-07-10 07:13] LABS: CHLORIDE 102 mEq/L (98-107)
[2018-07-10 07:30] LABS: HEPATITIS B SURFACE ANTIGEN NEGATIVE
[2018-07-10 07:59] LABS: HEPATITIS A AB IGM NEGATIVE (NEGATIVE)
[2018-07-10] MEDS: FOLIC ACID/VITAMIN B COMP W-C TABLET PO SCH (09:22)
[2018-07-10] MEDS: MULTIVITAMINS,THER W-MINERALS TABLET PO SCH (09:22)
[2018-07-10] MEDS: THIAMINE HCL 100MG TABLET PO SCH (09:22)
[2018-07-10] MEDS: PANTOPRAZOLE SODIUM 40 MG/VIAL IV SCH ×2 (09:22→16:27)
[2018-07-10] MEDS: NICOTINE 14MG PATCH TD SCH (09:23)
[2018-07-10] MEDS: MORPHINE SULFATE 4 MG/ML CPJ (NOT FOR IM USE) IV PRN ×3 (09:36→23:09)
[2018-07-10] MEDS: VANCOMYCIN 1250MG in DEXTROSE 5% WATER 250ML IV SCH (12:54)
[2018-07-10] MEDS ORDERED: POTASSIUM CHLORIDE 20MEQ TABLET SR PO NR (14:30)
[2018-07-10 15:42] LABS: HEMATOCRIT 27.4 % (42.0-52.0); HEMOGLOBIN 9.2 g/dL (14.0-18.0); MEAN CORPUSCULAR HEMOGLOBIN 33.7 pg (28.0-32.0); MEAN CORPUSCULAR VOLUME 99.7 fL (80.0-94.0); PLATELET 258 x1000/uL (130-400); RED BLOOD CELL COUNT 2.75 mill/uL (4.7-6.1); RED CELL DISTRIBUTION WIDTH 22.5 % (11.6-14.6)
[2018-07-10] MEDS: ONDANSETRON HCL 4MG/2ML INJ IV PRN (16:27)
[2018-07-11 00:08] VITALS: BP 126/99
[2018-07-11 00:15] LABS: HEMATOCRIT 27.5 % (42.0-52.0); HEMOGLOBIN 9.2 g/dL (14.0-18.0); MEAN CORPUSCULAR HEMOGLOBIN 33.5 pg (28.0-32.0); MEAN CORPUSCULAR VOLUME 100.6 fL (80.0-94.0); PLATELET 267 x1000/uL (130-400); RED BLOOD CELL COUNT 2.73 mill/uL (4.7-6.1); RED CELL DISTRIBUTION WIDTH 23.6 % (11.6-14.6)
[2018-07-11] MEDS: PIPERACILLIN/TAZ 3.375G PREMIX 50 ML IV SCH ×3 (01:48→18:12)
[2018-07-11] MEDS: SODIUM CHLORIDE 0.9% 1,000 ML IV SCH ×3 (01:49→22:42)
[2018-07-11] MEDS ORDERED: MAGNESIUM 2 G PREMIX 50 ML IV SCH (02:00)
[2018-07-11 04:00] VITALS: BP 117/79
[2018-07-11] MEDS: VANCOMYCIN 1250MG in DEXTROSE 5% WATER 250ML IV SCH (06:00)
[2018-07-11 06:16] LABS: CHLORIDE 104 mEq/L (98-107)
[2018-07-11 06:34] LABS: HEMATOCRIT. 27.9 % (42.0-52.0); HEMOGLOBIN. 9.2 g/dL (14.0-18.0); MEAN CORPUSCULAR HEMOGLOBIN 33.2 pg (28.0-32.0); MEAN CORPUSCULAR VOLUME 100.8 fL (80.0-94.0); MEAN PLATELET VOLUME 9.6 fl (7.4-10.4); PLATELET 285 x1000/uL (130-400); RED BLOOD CELL COUNT 2.77 mill/uL (4.7-6.1)
[2018-07-11 06:35] LABS: VANCOMYCIN TROUGH 39.9 ug/mL (5.0-10.0)
[2018-07-11 08:00] VITALS: BP 133/100
[2018-07-11] MEDS: PANTOPRAZOLE SODIUM 40 MG/VIAL IV SCH ×2 (08:03→17:06)
[2018-07-11] MEDS: MULTIVITAMINS,THER W-MINERALS TABLET PO SCH (08:03)
[2018-07-11] MEDS: MORPHINE SULFATE 4 MG/ML CPJ (NOT FOR IM USE) IV PRN ×3 (08:03→22:42)
[2018-07-11] MEDS: FOLIC ACID/VITAMIN B COMP W-C TABLET PO SCH (08:03)
[2018-07-11] MEDS: THIAMINE HCL 100MG TABLET PO SCH (08:03)
[2018-07-11] MEDS: NICOTINE 14MG PATCH TD SCH (08:04)
[2018-07-11] MEDS: IPRATROPIUM/ALBUTEROL 0.5-3(2.5)MG/3ML NEB HHN SCH ×3 (08:58→20:56)
[2018-07-11] MEDS ORDERED: POTASSIUM CHLORIDE 20MEQ TABLET SR PO NR (09:00)
[2018-07-11 12:00] VITALS: BP 147/68
[2018-07-11 13:52] LABS: PLATELET ESTIMATE NORMAL
[2018-07-11 16:00] VITALS: BP 144/111
[2018-07-11 20:00] VITALS: BP 135/86
[2018-07-12] VITALS: BP 139/88
[2018-07-12] MEDS: ZOLPIDEM TARTRATE 5MG TABLET PO PRN (00:43)
[2018-07-12] MEDS: PIPERACILLIN/TAZ 3.375G PREMIX 50 ML IV SCH ×3 (01:37→18:10)
[2018-07-12] MEDS: IPRATROPIUM/ALBUTEROL 0.5-3(2.5)MG/3ML NEB HHN SCH ×4 (02:00→21:02)
[2018-07-12 04:00] VITALS: BP 151/109
[2018-07-12 05:51] LABS: BASOPHILS % 0.6 % (0.0-2.0); EOSINOPHILS % 1.1 % (0.0-5.0); HEMATOCRIT. 28.1 % (42.0-52.0); HEMOGLOBIN. 9.3 g/dL (14.0-18.0); LYMPHOCYTES % 8.5 % (20.0-50.0); MEAN CORPUSCULAR HEMOGLOBIN 33.6 pg (28.0-32.0); MEAN CORPUSCULAR VOLUME 101.1 fL (80.0-94.0); MEAN PLATELET VOLUME 9.6 fl (7.4-10.4); MONOCYTES % 7.3 % (2.0-8.0); NEUTROPHILS % 82.5 % (40.0-76.0); PLATELET 284 x1000/uL (130-400); RED BLOOD CELL COUNT 2.78 mill/uL (4.7-6.1); RED CELL DISTRIBUTION WIDTH 23.3 % (11.6-14.6)
[2018-07-12 06:00] LABS: CHLORIDE 105 mEq/L (98-107)
[2018-07-12 07:29] LABS: PLATELET ESTIMATE NORMAL
[2018-07-12 08:00] VITALS: BP 122/86
[2018-07-12] MEDS: VANCOMYCIN 1 G PREMIX 200 ML IV SCH (08:51)
[2018-07-12] MEDS: FOLIC ACID/VITAMIN B COMP W-C TABLET PO SCH (09:00)
[2018-07-12] MEDS: NICOTINE 14MG PATCH TD SCH (09:00)
[2018-07-12] MEDS ORDERED: MAGNESIUM 4 G PREMIX 100 ML IV SCH (09:00)
[2018-07-12] MEDS: MULTIVITAMINS,THER W-MINERALS TABLET PO SCH (09:00)
[2018-07-12] MEDS: THIAMINE HCL 100MG TABLET PO SCH (09:00)
[2018-07-12] MEDS ORDERED: POTASSIUM CHLORIDE INJ 40 MEQ in DEXT 5% WATER 250 ML IV SCH (10:00)
[2018-07-12] MEDS: POTASSIUM CHLORIDE 20MEQ TABLET SR PO SCH (10:29)
[2018-07-12] MEDS: PANTOPRAZOLE SODIUM 40 MG/VIAL IV SCH ×2 (10:46→18:11)
[2018-07-12] MEDS: MORPHINE SULFATE 4 MG/ML CPJ (NOT FOR IM USE) IV PRN ×2 (10:51→21:09)
[2018-07-12] MEDS: SODIUM CHLORIDE 0.9% 1,000 ML IV SCH (11:50)
[2018-07-12 12:00] VITALS: BP 118/79
[2018-07-12 16:00] VITALS: BP 113/82
[2018-07-12 20:00] VITALS: BP 120/90
[2018-07-13] VITALS: BP 123/86
[2018-07-13] MEDS: IPRATROPIUM/ALBUTEROL 0.5-3(2.5)MG/3ML NEB HHN SCH ×3 (00:43→14:31)
[2018-07-13] MEDS: SODIUM CHLORIDE 0.9% 1,000 ML IV SCH ×2 (01:34→15:19)
[2018-07-13] MEDS: PIPERACILLIN/TAZ 3.375G PREMIX 50 ML IV SCH ×3 (01:35→18:07)
[2018-07-13 04:00] VITALS: BP 120/86
[2018-07-13 06:28] LABS: BASOPHILS % 0.3 % (0.0-2.0); EOSINOPHILS % 0.6 % (0.0-5.0); HEMATOCRIT. 28.9 % (42.0-52.0); HEMOGLOBIN. 9.6 g/dL (14.0-18.0); LYMPHOCYTES % 7.9 % (20.0-50.0); MEAN CORPUSCULAR HEMOGLOBIN 33.8 pg (28.0-32.0); MEAN CORPUSCULAR VOLUME 101.9 fL (80.0-94.0); MEAN PLATELET VOLUME 9.8 fl (7.4-10.4); MONOCYTES % 6.3 % (2.0-8.0); NEUTROPHILS % 84.9 % (40.0-76.0); PLATELET 283 x1000/uL (130-400); RED BLOOD CELL COUNT 2.84 mill/uL (4.7-6.1); RED CELL DISTRIBUTION WIDTH 22.6 % (11.6-14.6)
[2018-07-13 07:31] LABS: CHLORIDE 105 mEq/L (98-107)
[2018-07-13 08:00] VITALS: BP 142/97
[2018-07-13] MEDS: PANTOPRAZOLE SODIUM 40 MG/VIAL IV SCH ×2 (09:22→18:07)
[2018-07-13] MEDS: THIAMINE HCL 100MG TABLET PO SCH (09:22)
[2018-07-13] MEDS: FOLIC ACID/VITAMIN B COMP W-C TABLET PO SCH (09:22)
[2018-07-13] MEDS: MULTIVITAMINS,THER W-MINERALS TABLET PO SCH (09:22)
[2018-07-13] MEDS: POTASSIUM CHLORIDE 20MEQ TABLET SR PO SCH (09:22)
[2018-07-13] MEDS: NICOTINE 14MG PATCH TD SCH (09:22)
[2018-07-13] MEDS: MORPHINE SULFATE 4 MG/ML CPJ (NOT FOR IM USE) IV PRN (09:23)
[2018-07-13] MEDS: VANCOMYCIN 1 G PREMIX 200 ML IV SCH (09:23)
[2018-07-13 12:00] VITALS: BP 137/118
[2018-07-13] MEDS ORDERED: POTASSIUM CHLORIDE 20MEQ TABLET SR PO SCH (12:30)
[2018-07-13] MEDS ORDERED: LOPERAMIDE 2 MG/10 ML UDC PO PRN (13:00)
[2018-07-13] MEDS ORDERED: MAGNESIUM 2 G PREMIX 50 ML IV SCH (14:00)
[2018-07-13 16:00] VITALS: BP 124/76
[2018-07-13 17:14] VITALS: BP 137/78
[2018-07-14 07:18] LABS: ANGIOTENSION CONVERTING ENZYME 82 U/L (14-82)
[2018-07-14 09:06] LABS: ANTI-NUCLEAR ANTIBODIES DIRECT Negative (Negative)
== END 2018-07-13 19:05 | DRG 720 ==
LOC: ER 18:14 → 7WST 21:07 → EDBEDREQTM 21:10 → EDBEDREQ 21:10 → ENRESERV 23:43
PROVIDERS: ADMIT Internal Medicine; ATTEND Internal Medicine
PROC: 30233N1 Transfusion of Nonautologous Red Blood Cells into Peripheral Vein, Percutaneous Approach (ICD-10-PCS; principal; 2018-07-10)
DX: A41.9 Sepsis, unspecified organism (principal); J96.00 Acute respiratory failure, unspecified whether with hypoxia or hypercapnia; J18.8 Other pneumonia, unspecified organism; E44.0 Moderate protein-calorie malnutrition; I11.0 Hypertensive heart disease with heart failure; D68.4 Acquired coagulation factor deficiency; E83.42 Hypomagnesemia; K86.1 Other chronic pancreatitis; I50.22 Chronic systolic (congestive) heart failure; R65.20 Severe sepsis without septic shock; E83.51 Hypocalcemia; I48.0 Paroxysmal atrial fibrillation; D53.9 Nutritional anemia, unspecified; E87.1 Hypo-osmolality and hyponatremia; E87.6 Hypokalemia; K52.9 Noninfective gastroenteritis and colitis, unspecified; E07.9 Disorder of thyroid, unspecified; E11.9 Type 2 diabetes mellitus without complications; F10.10 Alcohol abuse, uncomplicated; G40.909 Epilepsy, unspecified, not intractable, without status epilepticus; K29.60 Other gastritis without bleeding; K70.31 Alcoholic cirrhosis of liver with ascites; E86.0 Dehydration; F17.210 Nicotine dependence, cigarettes, uncomplicated; J68.0 Bronchitis and pneumonitis due to chemicals, gases, fumes and vapors; K80.20 Calculus of gallbladder without cholecystitis without obstruction; Z86.73 Personal history of transient ischemic attack (TIA), and cerebral infarction without residual deficits; Z91.14 Patient's other noncompliance with medication regimen; Z88.0 Allergy status to penicillin; Z79.82 Long term (current) use of aspirin; Z79.84 Long term (current) use of oral hypoglycemic drugs; Z79.899 Other long term (current) drug therapy; Y92.89 Other specified places as the place of occurrence of the external cause
CPT/HCPCS: 36415; 71045; 71260; 74177; 76705; 80048; 80061; 80076; 80202; 80305; 82140; 82164; 82270; 82550; 82553; 82728; 83036; 83540; 83550; 83605; 83735; 84145; 84443; 84484; 85027; 85384; 85651; 86038; 86431; 86705; 86709; 86803; 86850; 86900; 86920; 87106; 87340; 87493; 93005; 93306; 93970; 96365; 96366; 96375; 97162; 97530; 99291; C1893; C9113; J1650; J2185; J2270; J2405; J2543; J3370; J3475; J3480; J3490; J7030; J7050; J7060; J7620; P9016; Q9967

== ENCOUNTER 2018-07-29 11:44 | Inpatient (IN) | payer MEDICAID ==
[~2018-07-29] VITALS: Ht 193 cm; Wt 83.5 kg
[~2018-07-29 11:44] MED LIST changes: -METF-416 PO
[2018-07-29 13:13] LABS: BASOPHILS % 0.8 % (0.0-2.0); EOSINOPHILS % 1.1 % (0.0-5.0); HEMATOCRIT. 30.2 % (42.0-52.0); HEMOGLOBIN. 10.2 g/dL (14.0-18.0); LYMPHOCYTES % 11.9 % (20.0-50.0); MEAN CORPUSCULAR HEMOGLOBIN 33.3 pg (28.0-32.0); MEAN CORPUSCULAR VOLUME 98.6 fL (80.0-94.0); MEAN PLATELET VOLUME 8.5 fl (7.4-10.4); MONOCYTES % 3.7 % (2.0-8.0); NEUTROPHILS % 82.5 % (40.0-76.0); PLATELET 515 x1000/uL (130-400); RED BLOOD CELL COUNT 3.07 mill/uL (4.7-6.1); RED CELL DISTRIBUTION WIDTH 15.7 % (11.6-14.6)
[2018-07-29 13:16] LABS: CHLORIDE 109 mEq/L (98-107)
[2018-07-29 13:19] LABS: INR 1.4
[2018-07-29] MEDS ORDERED: MORPHINE SULFATE 4 MG/ML CPJ (NOT FOR IM USE) IV STA (13:24)
[2018-07-29] MEDS ORDERED: ONDANSETRON HCL 4MG/2ML INJ IV STA (13:24)
[2018-07-29] MEDS ORDERED: FAMOTIDINE 20MG/2ML VIAL IV ONE (13:30)
[2018-07-29 13:46] LABS: ETHANOL BLOOD < 10 mg/dL
[2018-07-29 13:59] LABS: INR 1.4
[2018-07-29] MEDS ORDERED: MAGNESIUM 2 G PREMIX 50 ML IV ONE (15:00)
[2018-07-29] MEDS ORDERED: DOCUSATE SODIUM 100MG CAPSULE PO PRN (15:45)
[2018-07-29] MEDS ORDERED: ONDANSETRON HCL 4MG/2ML INJ IV PRN (15:45)
[2018-07-29] MEDS ORDERED: ACETAMINOPHEN 325MG TABLET PO PRN (15:45)
[2018-07-29] MEDS ORDERED: IPRATROPIUM/ALBUTEROL 0.5-3(2.5)MG/3ML NEB INH PRN (15:45)
[2018-07-29 16:34] LABS: CLARITY URINE CLOUDY (CLEAR); COLOR URINE DARK YELLOW (YELLOW); KETONES URINE TRACE (NEGATIVE); LEUKOCYTE ESTERASE URINE TRACE (NEGATIVE); NITRITE URINE NEGATIVE (NEGATIVE); OCCULT BLOOD URINE NEGATIVE (NEGATIVE); PROTEIN URINE 1+ (NEGATIVE); SPECIFIC GRAVITY URINE 1.025 (1.005-1.030); UROBILINOGEN URINE 0.2 E.U./dL (0.2-1.0)
[2018-07-29 16:46] LABS: *AMPHETAMINES SCREEN URINE NEGATIVE (NEGATIVE); *BARBITURATES SCREEN URINE NEGATIVE (NEGATIVE); *BENZODIAZEPINES SCREEN URINE NEGATIVE (NEGATIVE)
[2018-07-29 16:47] LABS: *COCAINE SCREEN URINE NEGATIVE (NEGATIVE); CANNABINOID URINE SCREEN NEGATIVE (NEGATIVE); METHADONE URINE SCREEN NEGATIVE (NEGATIVE); OPIATES URINE SCREEN PRESUMTIVE POSITIVE (NEGATIVE); PHENCYCLIDINE URINE SCREEN NEGATIVE (NEGATIVE)
[2018-07-29] MEDS ORDERED: LEVOFLOXACIN 500MG PREMIX 100 ML IV ONE (18:45)
[2018-07-29] MEDS: HYDROCODONE/ACETAMINOPHEN 5/325MG TABLET PO PRN (21:08)
[2018-07-29 21:39] LABS: CHLORIDE 110 mEq/L (98-107)
[2018-07-29 22:30] VITALS: BP 130/100
[2018-07-30] VITALS: BP 156/104
[2018-07-30 02:02] LABS: CREATINE KINASE MB FRACTION 6.1 ng/mL (0.5-3.6)
[2018-07-30] MEDS ORDERED: DEXTROSE 50% WATER 50ML SYRINGE IV PRN (03:00)
[2018-07-30 04:00] VITALS: BP 161/102
[2018-07-30] MEDS: HYDROCODONE/ACETAMINOPHEN 5/325MG TABLET PO PRN ×3 (04:33→16:37)
[2018-07-30] MEDS: CLONIDINE 0.1MG TABLET PO PRN (04:33)
[2018-07-30 06:18] LABS: BASOPHILS % 0.5 % (0.0-2.0); HEMATOCRIT. 26.4 % (42.0-52.0); HEMOGLOBIN. 8.8 g/dL (14.0-18.0); MEAN CORPUSCULAR HEMOGLOBIN 33.1 pg (28.0-32.0); MONOCYTES % 5.9 % (2.0-8.0); NEUTROPHILS % 82.6 % (40.0-76.0); PLATELET 433 x1000/uL (130-400); RED BLOOD CELL COUNT 2.64 mill/uL (4.7-6.1); RED CELL DISTRIBUTION WIDTH 15.4 % (11.6-14.6)
[2018-07-30 07:02] LABS: CREATINE KINASE MB FRACTION 6.4 ng/mL (0.5-3.6)
[2018-07-30] MEDS: BLOOD SUGAR DIAGNOSTIC STRIP TEST SCH ×4 (07:02→20:52)
[2018-07-30] MEDS: INSULIN LISPRO 100 UNITS/ML SUBCUT SCH ×4 (07:02→20:52)
[2018-07-30 07:55] VITALS: BP 121/86
[2018-07-30] MEDS ORDERED: SODIUM BICARBONATE 4% (2.4MEQ) 5ML VIAL IV ONE (10:06)
[2018-07-30 16:04] VITALS: BP 146/83
[2018-07-30 17:26] LABS: TOTAL IRON BINDING CAPACITY 81 ug/dL (250-450)
[2018-07-30] MEDS: LEVETIRACETAM 500MG TABLET PO SCH (20:47)
[2018-07-30] MEDS: ZOLPIDEM TARTRATE 5MG TABLET PO PRN (20:47)
[2018-07-30] MEDS: AZITHROMYCIN 500 MG TABLET PO SCH (20:47)
[2018-07-30] MEDS: DULOXETINE HCL 30MG DR CAPSULE PO SCH (20:47)
[2018-07-30] MEDS ORDERED: MAGNESIUM 4 G PREMIX 100 ML IV NR (22:00)
[2018-07-30] MEDS: CEFTRIAXONE 1 G PREMIX 50 ML IV SCH (22:13)
[2018-07-31] VITALS: BP 146/107
[2018-07-31 04:00] VITALS: BP 146/108
[2018-07-31 05:50] LABS: BASOPHILS % 0.5 % (0.0-2.0); EOSINOPHILS % 1.5 % (0.0-5.0); HEMATOCRIT. 29.2 % (42.0-52.0); HEMOGLOBIN. 9.6 g/dL (14.0-18.0); LYMPHOCYTES % 11.2 % (20.0-50.0); MEAN CORPUSCULAR HEMOGLOBIN 32.5 pg (28.0-32.0); MEAN CORPUSCULAR VOLUME 99.2 fL (80.0-94.0); MEAN PLATELET VOLUME 8.9 fl (7.4-10.4); MONOCYTES % 6.1 % (2.0-8.0); NEUTROPHILS % 80.7 % (40.0-76.0); PLATELET 485 x1000/uL (130-400); RED BLOOD CELL COUNT 2.94 mill/uL (4.7-6.1); RED CELL DISTRIBUTION WIDTH 15.5 % (11.6-14.6)
[2018-07-31 06:13] LABS: CHLORIDE 109 mEq/L (98-107)
[2018-07-31] MEDS: BLOOD SUGAR DIAGNOSTIC STRIP TEST SCH ×4 (07:08→21:04)
[2018-07-31 08:00] VITALS: BP 165/105
[2018-07-31] MEDS: AZITHROMYCIN 500 MG TABLET PO SCH (08:58)
[2018-07-31] MEDS: LEVETIRACETAM 500MG TABLET PO SCH ×2 (08:58→21:04)
[2018-07-31] MEDS: HYDROCODONE/ACETAMINOPHEN 5/325MG TABLET PO PRN (09:00)
[2018-07-31] MEDS: MULTIVITAMINS,THER W-MINERALS TABLET PO SCH (09:00)
[2018-07-31] MEDS: CLONIDINE 0.1MG TABLET PO PRN (09:00)
[2018-07-31] MEDS: LORATADINE 10MG TABLET PO SCH (09:00)
[2018-07-31] MEDS: DULOXETINE HCL 30MG DR CAPSULE PO SCH (09:00)
[2018-07-31] MEDS: INSULIN LISPRO 100 UNITS/ML SUBCUT SCH ×4 (09:03→21:04)
[2018-07-31 12:14] VITALS: BP 103/45
[2018-07-31 16:00] VITALS: BP 142/100
[2018-07-31 20:00] VITALS: BP 137/107
[2018-07-31] MEDS: CEFTRIAXONE 1 G PREMIX 50 ML IV SCH (21:05)
[2018-08-01] VITALS: BP 154/115
[2018-08-01] MEDS: LORATADINE 10MG TABLET PO SCH (02:43)
[2018-08-01] MEDS: HYDROCODONE/ACETAMINOPHEN 5/325MG TABLET PO PRN (02:43)
[2018-08-01 04:00] VITALS: BP 151/98
[2018-08-01 06:06] LABS: BASOPHILS % 0.4 % (0.0-2.0); EOSINOPHILS % 1.7 % (0.0-5.0); HEMATOCRIT. 27.5 % (42.0-52.0); LYMPHOCYTES % 11.7 % (20.0-50.0); MEAN CORPUSCULAR HEMOGLOBIN 32.7 pg (28.0-32.0); MEAN CORPUSCULAR VOLUME 99.6 fL (80.0-94.0); MEAN PLATELET VOLUME 9.1 fl (7.4-10.4); MONOCYTES % 6.6 % (2.0-8.0); NEUTROPHILS % 79.6 % (40.0-76.0); PLATELET 423 x1000/uL (130-400); RED BLOOD CELL COUNT 2.76 mill/uL (4.7-6.1); RED CELL DISTRIBUTION WIDTH 15.5 % (11.6-14.6)
[2018-08-01 06:08] LABS: CHLORIDE 109 mEq/L (98-107)
[2018-08-01] MEDS: BLOOD SUGAR DIAGNOSTIC STRIP TEST SCH ×4 (06:40→20:52)
[2018-08-01] MEDS: INSULIN LISPRO 100 UNITS/ML SUBCUT SCH ×4 (07:52→20:52)
[2018-08-01 08:01] VITALS: BP 139/98
[2018-08-01] MEDS: MULTIVITAMINS,THER W-MINERALS TABLET PO SCH (08:59)
[2018-08-01] MEDS: AZITHROMYCIN 500 MG TABLET PO SCH (08:59)
[2018-08-01] MEDS: DULOXETINE HCL 30MG DR CAPSULE PO SCH (08:59)
[2018-08-01] MEDS: LEVETIRACETAM 500MG TABLET PO SCH ×2 (08:59→20:52)
[2018-08-01 12:00] VITALS: BP 174/106
[2018-08-01] MEDS: DIPHENHYDRAMINE 50MG/ML VIAL IV PRN ×2 (12:39→16:47)
[2018-08-01] MEDS: CLONIDINE 0.1MG TABLET PO PRN (12:40)
[2018-08-01 15:37] VITALS: BP 153/113
[2018-08-01 15:39] VITALS: BP 153/72
[2018-08-01] MEDS ORDERED: MAGNESIUM 4 G PREMIX 100 ML IV NR (16:00)
[2018-08-01] MEDS: AMLODIPINE 5MG TABLET PO SCH (16:47)
[2018-08-01] MEDS: PSYLLIUM SEED PACKET PO SCH ×2 (16:47→17:00)
[2018-08-01] MEDS: CEFTRIAXONE 1 G PREMIX 50 ML IV SCH (21:58)
[2018-08-02] VITALS: BP 147/104
[2018-08-02 04:00] VITALS: BP 152/108
[2018-08-02 05:43] LABS: BASOPHILS % 0.5 % (0.0-2.0); EOSINOPHILS % 1.4 % (0.0-5.0); HEMATOCRIT. 30.7 % (42.0-52.0); HEMOGLOBIN. 10.2 g/dL (14.0-18.0); LYMPHOCYTES % 10.4 % (20.0-50.0); MEAN CORPUSCULAR HEMOGLOBIN 32.5 pg (28.0-32.0); MEAN CORPUSCULAR VOLUME 97.7 fL (80.0-94.0); MEAN PLATELET VOLUME 8.8 fl (7.4-10.4); NEUTROPHILS % 81.7 % (40.0-76.0); PLATELET 474 x1000/uL (130-400); RED BLOOD CELL COUNT 3.14 mill/uL (4.7-6.1); RED CELL DISTRIBUTION WIDTH 15.5 % (11.6-14.6)
[2018-08-02 05:45] LABS: CHLORIDE 107 mEq/L (98-107)
[2018-08-02] MEDS: BLOOD SUGAR DIAGNOSTIC STRIP TEST SCH ×4 (07:00→20:35)
[2018-08-02 08:00] VITALS: BP 160/116
[2018-08-02] MEDS: INSULIN LISPRO 100 UNITS/ML SUBCUT SCH ×3 (08:02→20:35)
[2018-08-02] MEDS: DULOXETINE HCL 30MG DR CAPSULE PO SCH (09:36)
[2018-08-02] MEDS: LEVETIRACETAM 500MG TABLET PO SCH ×2 (09:36→20:56)
[2018-08-02] MEDS: AZITHROMYCIN 500 MG TABLET PO SCH (09:38)
[2018-08-02] MEDS: MULTIVITAMINS,THER W-MINERALS TABLET PO SCH (09:38)
[2018-08-02] MEDS: AMLODIPINE 5MG TABLET PO SCH (09:38)
[2018-08-02] MEDS: PSYLLIUM SEED PACKET PO SCH ×3 (09:38→17:00)
[2018-08-02 13:30] VITALS: BP 163/111
[2018-08-02] MEDS: CLONIDINE 0.1MG TABLET PO PRN (14:18)
[2018-08-02 16:30] VITALS: BP 138/110
[2018-08-02 20:00] VITALS: BP 147/93
[2018-08-02] MEDS: ZOLPIDEM TARTRATE 5MG TABLET PO PRN (20:56)
[2018-08-02] MEDS: CEFTRIAXONE 1 G PREMIX 50 ML IV SCH (22:10)
[2018-08-03] VITALS: BP 135/88
[2018-08-03 04:00] VITALS: BP 146/90
[2018-08-03] MEDS: INSULIN LISPRO 100 UNITS/ML SUBCUT SCH ×4 (06:25→21:00)
[2018-08-03] MEDS: BLOOD SUGAR DIAGNOSTIC STRIP TEST SCH ×4 (06:25→21:16)
[2018-08-03 06:52] LABS: BASOPHILS % 0.6 % (0.0-2.0); EOSINOPHILS % 1.5 % (0.0-5.0); HEMATOCRIT. 28.7 % (42.0-52.0); HEMOGLOBIN. 9.7 g/dL (14.0-18.0); LYMPHOCYTES % 11.7 % (20.0-50.0); MEAN CORPUSCULAR HEMOGLOBIN 32.9 pg (28.0-32.0); MEAN CORPUSCULAR VOLUME 97.5 fL (80.0-94.0); MEAN PLATELET VOLUME 8.8 fl (7.4-10.4); MONOCYTES % 6.3 % (2.0-8.0); NEUTROPHILS % 79.9 % (40.0-76.0); PLATELET 451 x1000/uL (130-400); RED BLOOD CELL COUNT 2.94 mill/uL (4.7-6.1); RED CELL DISTRIBUTION WIDTH 15.2 % (11.6-14.6)
[2018-08-03 07:44] LABS: CHLORIDE 110 mEq/L (98-107)
[2018-08-03 08:00] VITALS: BP 169/95
[2018-08-03] MEDS: PSYLLIUM SEED PACKET PO SCH ×4 (09:00→17:00)
[2018-08-03] MEDS: DULOXETINE HCL 30MG DR CAPSULE PO SCH (09:13)
[2018-08-03] MEDS: AMLODIPINE 5MG TABLET PO SCH (09:13)
[2018-08-03] MEDS: MULTIVITAMINS,THER W-MINERALS TABLET PO SCH (09:13)
[2018-08-03] MEDS: LEVETIRACETAM 500MG TABLET PO SCH ×2 (09:13→21:16)
[2018-08-03] MEDS: AZITHROMYCIN 500 MG TABLET PO SCH (09:13)
[2018-08-03 12:00] VITALS: BP 163/100
[2018-08-03 16:00] VITALS: BP 168/110
[2018-08-03 20:00] VITALS: BP 153/112
[2018-08-03] MEDS: CEFTRIAXONE 1 G PREMIX 50 ML IV SCH (22:00)
[2018-08-04] VITALS: BP 159/111
[2018-08-04 04:00] VITALS: BP 151/112
[2018-08-04] MEDS: BLOOD SUGAR DIAGNOSTIC STRIP TEST SCH ×4 (06:44→20:57)
[2018-08-04] MEDS: INSULIN LISPRO 100 UNITS/ML SUBCUT SCH ×4 (06:44→20:57)
[2018-08-04 07:02] LABS: BASOPHILS % 0.3 % (0.0-2.0); EOSINOPHILS % 0.7 % (0.0-5.0); HEMATOCRIT. 29.7 % (42.0-52.0); HEMOGLOBIN. 9.8 g/dL (14.0-18.0); LYMPHOCYTES % 9.3 % (20.0-50.0); MEAN CORPUSCULAR HEMOGLOBIN 32.1 pg (28.0-32.0); MEAN CORPUSCULAR VOLUME 97.8 fL (80.0-94.0); MEAN PLATELET VOLUME 8.4 fl (7.4-10.4); MONOCYTES % 5.1 % (2.0-8.0); NEUTROPHILS % 84.6 % (40.0-76.0); PLATELET 505 x1000/uL (130-400); RED BLOOD CELL COUNT 3.04 mill/uL (4.7-6.1); RED CELL DISTRIBUTION WIDTH 15.4 % (11.6-14.6)
[2018-08-04 07:13] LABS: CHLORIDE 109 mEq/L (98-107)
[2018-08-04 08:00] VITALS: BP 180/100
[2018-08-04] MEDS: PSYLLIUM SEED PACKET PO SCH ×3 (09:00→17:00)
[2018-08-04] MEDS: AZITHROMYCIN 500 MG TABLET PO SCH (09:40)
[2018-08-04] MEDS: LEVETIRACETAM 500MG TABLET PO SCH ×2 (09:40→20:53)
[2018-08-04] MEDS: MULTIVITAMINS,THER W-MINERALS TABLET PO SCH (09:40)
[2018-08-04] MEDS: CLONIDINE 0.1MG TABLET PO PRN ×2 (09:41→20:52)
[2018-08-04] MEDS: AMLODIPINE 5MG TABLET PO SCH (09:41)
[2018-08-04] MEDS: DULOXETINE HCL 30MG DR CAPSULE PO SCH (09:41)
[2018-08-04] MEDS: LOPERAMIDE 2 MG/10 ML UDC PO PRN (11:11)
[2018-08-04 11:54] VITALS: BP 159/90
[2018-08-04 12:00] VITALS: BP 165/100
[2018-08-04] MEDS: MEGESTROL ACETATE 400 MG/10 ML UDC PO SCH (17:51)
[2018-08-04] MEDS: NYSTATIN POWDER 15GM TOP SCH (17:51)
[2018-08-04] MEDS: LIPASE/PROTEASE/AMYLASE 4,200/14,200/24,600 UNITS CAP DR PO SCH (18:05)
[2018-08-04 20:00] VITALS: BP 176/112
[2018-08-04] MEDS: NYSTATIN 100,000 UNITS/GM CREAM 15GM TOP SCH (20:54)
[2018-08-04] MEDS: CEFTRIAXONE 1 G PREMIX 50 ML IV SCH (22:05)
[2018-08-05] VITALS: BP 144/113
[2018-08-05 04:00] VITALS: BP 161/104
[2018-08-05] MEDS: BLOOD SUGAR DIAGNOSTIC STRIP TEST SCH ×4 (06:41→21:03)
[2018-08-05] MEDS: INSULIN LISPRO 100 UNITS/ML SUBCUT SCH ×4 (06:41→21:00)
[2018-08-05 06:42] LABS: BASOPHILS % 0.5 % (0.0-2.0); EOSINOPHILS % 1.3 % (0.0-5.0); HEMATOCRIT. 30.1 % (42.0-52.0); HEMOGLOBIN. 9.9 g/dL (14.0-18.0); LYMPHOCYTES % 11.6 % (20.0-50.0); MEAN CORPUSCULAR HEMOGLOBIN 31.9 pg (28.0-32.0); MEAN CORPUSCULAR VOLUME 96.7 fL (80.0-94.0); MEAN PLATELET VOLUME 8.5 fl (7.4-10.4); NEUTROPHILS % 80.6 % (40.0-76.0); PLATELET 475 x1000/uL (130-400); RED BLOOD CELL COUNT 3.12 mill/uL (4.7-6.1); RED CELL DISTRIBUTION WIDTH 15.2 % (11.6-14.6)
[2018-08-05 07:27] LABS: CHLORIDE 111 mEq/L (98-107)
[2018-08-05 08:00] VITALS: BP 168/90
[2018-08-05] MEDS: DULOXETINE HCL 30MG DR CAPSULE PO SCH (08:47)
[2018-08-05] MEDS: LOPERAMIDE 2 MG/10 ML UDC PO PRN (08:47)
[2018-08-05] MEDS: LIPASE/PROTEASE/AMYLASE 4,200/14,200/24,600 UNITS CAP DR PO SCH ×3 (08:47→17:27)
[2018-08-05] MEDS: MULTIVITAMINS,THER W-MINERALS TABLET PO SCH (08:47)
[2018-08-05] MEDS: AZITHROMYCIN 500 MG TABLET PO SCH (08:47)
[2018-08-05] MEDS: MEGESTROL ACETATE 400 MG/10 ML UDC PO SCH (08:47)
[2018-08-05] MEDS: LEVETIRACETAM 500MG TABLET PO SCH ×2 (08:47→21:01)
[2018-08-05] MEDS: PSYLLIUM SEED PACKET PO SCH ×3 (08:48→17:00)
[2018-08-05] MEDS: AMLODIPINE 5MG TABLET PO SCH (08:48)
[2018-08-05] MEDS: NYSTATIN 100,000 UNITS/GM CREAM 15GM TOP SCH ×2 (08:48→21:01)
[2018-08-05] MEDS: NYSTATIN POWDER 15GM TOP SCH ×3 (08:48→17:28)
[2018-08-05 12:00] VITALS: BP_SYST 158; BP_SYST 159; BP_DIAS 91; BP_DIAS 93
[2018-08-05 16:00] VITALS: BP 158/93
[2018-08-05] MEDS: CLONIDINE 0.1MG TABLET PO PRN (17:27)
[2018-08-05] MEDS ORDERED: POTASSIUM CHLORIDE 20MEQ TABLET SR PO NR (18:15)
[2018-08-05] MEDS: ASPIRIN 81MG TABLET PO SCH (18:30)
[2018-08-05 20:45] VITALS: BP 154/97
[2018-08-05] MEDS: METOPROLOL TARTRATE 25MG TABLET PO SCH (21:01)
[2018-08-05] MEDS: CEFTRIAXONE 1 G PREMIX 50 ML IV SCH (21:03)
[2018-08-06 04:00] VITALS: BP 155/99
[2018-08-06] MEDS: CLONIDINE 0.1MG TABLET PO PRN (05:27)
[2018-08-06] MEDS: BLOOD SUGAR DIAGNOSTIC STRIP TEST SCH ×4 (06:15→20:39)
[2018-08-06] MEDS: INSULIN LISPRO 100 UNITS/ML SUBCUT SCH ×4 (06:15→20:39)
[2018-08-06 06:39] LABS: BASOPHILS % 0.6 % (0.0-2.0); HEMATOCRIT. 30.7 % (42.0-52.0); HEMOGLOBIN. 10.2 g/dL (14.0-18.0); LYMPHOCYTES % 12.3 % (20.0-50.0); MEAN CORPUSCULAR HEMOGLOBIN 32.2 pg (28.0-32.0); MEAN CORPUSCULAR VOLUME 96.9 fL (80.0-94.0); MEAN PLATELET VOLUME 8.4 fl (7.4-10.4); MONOCYTES % 6.7 % (2.0-8.0); NEUTROPHILS % 79.4 % (40.0-76.0); PLATELET 495 x1000/uL (130-400); RED BLOOD CELL COUNT 3.17 mill/uL (4.7-6.1); RED CELL DISTRIBUTION WIDTH 15.3 % (11.6-14.6)
[2018-08-06 07:53] LABS: CHLORIDE 113 mEq/L (98-107)
[2018-08-06 08:00] VITALS: BP 150/93
[2018-08-06] MEDS: PSYLLIUM SEED PACKET PO SCH ×2 (09:00→12:56)
[2018-08-06] MEDS: MEGESTROL ACETATE 400 MG/10 ML UDC PO SCH (09:05)
[2018-08-06] MEDS: AZITHROMYCIN 500 MG TABLET PO SCH (09:06)
[2018-08-06] MEDS: ASPIRIN 81MG TABLET PO SCH (09:06)
[2018-08-06] MEDS: DULOXETINE HCL 30MG DR CAPSULE PO SCH (09:06)
[2018-08-06] MEDS: METOPROLOL TARTRATE 25MG TABLET PO SCH ×2 (09:06→20:33)
[2018-08-06] MEDS: LEVETIRACETAM 500MG TABLET PO SCH ×2 (09:06→20:33)
[2018-08-06] MEDS: LIPASE/PROTEASE/AMYLASE 4,200/14,200/24,600 UNITS CAP DR PO SCH ×3 (09:06→18:49)
[2018-08-06] MEDS: NYSTATIN POWDER 15GM TOP SCH ×3 (09:07→18:49)
[2018-08-06] MEDS: MULTIVITAMINS,THER W-MINERALS TABLET PO SCH (09:07)
[2018-08-06] MEDS: AMLODIPINE 5MG TABLET PO SCH (09:07)
[2018-08-06] MEDS: NYSTATIN 100,000 UNITS/GM CREAM 15GM TOP SCH ×2 (09:07→20:33)
[2018-08-06 12:00] VITALS: BP 139/91
[2018-08-06 16:00] VITALS: BP 144/90
[2018-08-06] MEDS: PANTOPRAZOLE SODIUM 40 MG/VIAL IV SCH (18:48)
[2018-08-06] MEDS: LOPERAMIDE 2 MG/10 ML UDC PO PRN (18:48)
[2018-08-06 19:25] LABS: PHOSPHORUS 2.3 mg/dL (2.5-4.9)
[2018-08-06 20:00] VITALS: BP 132/84
[2018-08-06] MEDS: CEFTRIAXONE 1 G PREMIX 50 ML IV SCH (20:32)
[2018-08-06] MEDS ORDERED: LOPERAMIDE 2 MG/10 ML UDC PO PRN (22:45)
[2018-08-07] VITALS: BP 128/70
[2018-08-07 04:00] VITALS: BP 148/60
[2018-08-07] MEDS: BLOOD SUGAR DIAGNOSTIC STRIP TEST SCH ×4 (06:46→20:39)
[2018-08-07] MEDS: INSULIN LISPRO 100 UNITS/ML SUBCUT SCH ×4 (06:46→20:39)
[2018-08-07 07:18] LABS: BASOPHILS % 0.6 % (0.0-2.0); EOSINOPHILS % 1.9 % (0.0-5.0); HEMATOCRIT. 29.5 % (42.0-52.0); HEMOGLOBIN. 9.9 g/dL (14.0-18.0); LYMPHOCYTES % 14.2 % (20.0-50.0); MEAN CORPUSCULAR HEMOGLOBIN 32.4 pg (28.0-32.0); MEAN CORPUSCULAR VOLUME 96.7 fL (80.0-94.0); MEAN PLATELET VOLUME 8.5 fl (7.4-10.4); NEUTROPHILS % 78.3 % (40.0-76.0); PLATELET 484 x1000/uL (130-400); RED BLOOD CELL COUNT 3.05 mill/uL (4.7-6.1); RED CELL DISTRIBUTION WIDTH 15.3 % (11.6-14.6)
[2018-08-07 07:26] LABS: CHLORIDE 113 mEq/L (98-107)
[2018-08-07] MEDS: ASPIRIN 81MG TABLET PO SCH (07:40)
[2018-08-07 07:53] LABS: INR 1.5; PROTHROMBIN TIME 15.2 sec (9.6-11.0)
[2018-08-07 08:00] VITALS: BP 159/106
[2018-08-07] MEDS: LIPASE/PROTEASE/AMYLASE 4,200/14,200/24,600 UNITS CAP DR PO SCH ×3 (09:12→17:56)
[2018-08-07] MEDS: PANTOPRAZOLE SODIUM 40 MG/VIAL IV SCH (09:13)
[2018-08-07] MEDS: LEVETIRACETAM 500MG TABLET PO SCH ×2 (09:13→20:34)
[2018-08-07] MEDS: MULTIVITAMINS,THER W-MINERALS TABLET PO SCH (09:13)
[2018-08-07] MEDS: MEGESTROL ACETATE 400 MG/10 ML UDC PO SCH (09:13)
[2018-08-07] MEDS: METOPROLOL TARTRATE 25MG TABLET PO SCH ×2 (09:14→20:35)
[2018-08-07] MEDS: AMLODIPINE 5MG TABLET PO SCH (09:14)
[2018-08-07] MEDS: NYSTATIN POWDER 15GM TOP SCH ×4 (09:15→20:41)
[2018-08-07] MEDS ORDERED: LIDOCAINE HCL 1% 20ML VIAL (Pyxis) INJ ONE (09:16)
[2018-08-07] MEDS ORDERED: SODIUM BICARBONATE 4% (2.4MEQ) 5ML VIAL IV ONE (09:16)
[2018-08-07] MEDS: NYSTATIN 100,000 UNITS/GM CREAM 15GM TOP SCH ×2 (09:16→20:43)
[2018-08-07] MEDS: DULOXETINE HCL 30MG DR CAPSULE PO SCH (09:16)
[2018-08-07] MEDS ORDERED: MAGNESIUM 1 G PREMIX 100 ML IV NR (10:00)
[2018-08-07 12:00] VITALS: BP 129/91
[2018-08-07 16:00] VITALS: BP 138/91
[2018-08-07 20:00] VITALS: BP 159/100
[2018-08-08 04:00] VITALS: BP 159/94
[2018-08-08] MEDS: INSULIN LISPRO 100 UNITS/ML SUBCUT SCH ×4 (06:27→20:16)
[2018-08-08] MEDS: BLOOD SUGAR DIAGNOSTIC STRIP TEST SCH ×4 (06:27→20:16)
[2018-08-08 07:40] LABS: CHLORIDE 110 mEq/L (98-107)
[2018-08-08 07:43] LABS: BASOPHILS % 0.6 % (0.0-2.0); EOSINOPHILS % 1.8 % (0.0-5.0); HEMATOCRIT. 28.9 % (42.0-52.0); HEMOGLOBIN. 9.6 g/dL (14.0-18.0); LYMPHOCYTES % 15.7 % (20.0-50.0); MEAN CORPUSCULAR VOLUME 96.2 fL (80.0-94.0); MEAN PLATELET VOLUME 8.7 fl (7.4-10.4); NEUTROPHILS % 75.9 % (40.0-76.0); PLATELET 478 x1000/uL (130-400); RED CELL DISTRIBUTION WIDTH 15.4 % (11.6-14.6)
[2018-08-08] MEDS ORDERED: NON FORMULARY PATIENT HOME MED XX SCH (08:15)
[2018-08-08] MEDS: LEVETIRACETAM 500MG TABLET PO SCH ×2 (08:33→20:11)
[2018-08-08] MEDS: AMLODIPINE 5MG TABLET PO SCH (08:33)
[2018-08-08] MEDS: MULTIVITAMINS,THER W-MINERALS TABLET PO SCH (08:33)
[2018-08-08] MEDS: ASPIRIN 81MG TABLET PO SCH (08:33)
[2018-08-08] MEDS: METOPROLOL TARTRATE 25MG TABLET PO SCH ×2 (08:34→20:12)
[2018-08-08] MEDS: NYSTATIN 100,000 UNITS/GM CREAM 15GM TOP SCH ×2 (08:35→20:18)
[2018-08-08] MEDS: DULOXETINE HCL 30MG DR CAPSULE PO SCH (08:35)
[2018-08-08] MEDS: PANTOPRAZOLE SODIUM 40 MG/VIAL IV SCH (08:35)
[2018-08-08] MEDS: LIPASE/PROTEASE/AMYLASE 4,200/14,200/24,600 UNITS CAP DR PO SCH ×3 (08:35→16:06)
[2018-08-08] MEDS: DRONABINOL 2.5MG CAPSULE PO SCH (09:00)
[2018-08-08] MEDS: NYSTATIN POWDER 15GM TOP SCH ×3 (11:55→20:17)
[2018-08-08 12:00] VITALS: BP 147/99
[2018-08-08 16:00] VITALS: BP 138/97
[2018-08-08] MEDS: AZITHROMYCIN 500 MG TABLET PO SCH (16:06)
[2018-08-08 20:00] VITALS: BP 143/93
[2018-08-09] VITALS: BP 159/91
[2018-08-09 04:00] VITALS: BP 139/92
[2018-08-09 05:31] LABS: BASOPHILS % 0.5 % (0.0-2.0); EOSINOPHILS % 1.3 % (0.0-5.0); HEMATOCRIT. 29.7 % (42.0-52.0); LYMPHOCYTES % 14.7 % (20.0-50.0); MEAN CORPUSCULAR HEMOGLOBIN 31.8 pg (28.0-32.0); MEAN CORPUSCULAR VOLUME 94.9 fL (80.0-94.0); MEAN PLATELET VOLUME 8.4 fl (7.4-10.4); MONOCYTES % 6.3 % (2.0-8.0); NEUTROPHILS % 77.2 % (40.0-76.0); PLATELET 475 x1000/uL (130-400); RED BLOOD CELL COUNT 3.13 mill/uL (4.7-6.1); RED CELL DISTRIBUTION WIDTH 15.4 % (11.6-14.6)
[2018-08-09] MEDS: BLOOD SUGAR DIAGNOSTIC STRIP TEST SCH ×4 (05:54→20:29)
[2018-08-09] MEDS: INSULIN LISPRO 100 UNITS/ML SUBCUT SCH ×4 (05:54→20:29)
[2018-08-09 07:30] LABS: CHLORIDE 110 mEq/L (98-107)
[2018-08-09] MEDS: LEVETIRACETAM 500MG TABLET PO SCH ×2 (09:16→20:31)
[2018-08-09] MEDS: ASPIRIN 81MG TABLET PO SCH (09:16)
[2018-08-09] MEDS: MULTIVITAMINS,THER W-MINERALS TABLET PO SCH (09:16)
[2018-08-09] MEDS: DULOXETINE HCL 30MG DR CAPSULE PO SCH (09:16)
[2018-08-09] MEDS: PANTOPRAZOLE SODIUM 40 MG/VIAL IV SCH (09:16)
[2018-08-09] MEDS: AZITHROMYCIN 500 MG TABLET PO SCH (09:16)
[2018-08-09] MEDS: DRONABINOL 2.5MG CAPSULE PO SCH (09:16)
[2018-08-09] MEDS: METOPROLOL TARTRATE 25MG TABLET PO SCH ×2 (09:17→20:31)
[2018-08-09] MEDS: LIPASE/PROTEASE/AMYLASE 4,200/14,200/24,600 UNITS CAP DR PO SCH ×3 (09:17→17:27)
[2018-08-09] MEDS: AMLODIPINE 5MG TABLET PO SCH (09:17)
[2018-08-09] MEDS: CLONIDINE 0.1MG TABLET PO PRN (12:19)
[2018-08-09] MEDS: NYSTATIN POWDER 15GM TOP SCH ×2 (18:15→18:16)
[2018-08-09] MEDS: NYSTATIN 100,000 UNITS/GM CREAM 15GM TOP SCH ×2 (18:16→20:32)
[2018-08-09 20:00] VITALS: BP 144/101
[2018-08-10] VITALS: BP 161/100
[2018-08-10 04:00] VITALS: BP 130/82
[2018-08-10] MEDS: INSULIN LISPRO 100 UNITS/ML SUBCUT SCH ×4 (06:26→21:00)
[2018-08-10] MEDS: BLOOD SUGAR DIAGNOSTIC STRIP TEST SCH ×4 (06:26→21:22)
[2018-08-10 06:40] LABS: BASOPHILS % 1.5 % (0.0-2.0); EOSINOPHILS % 2.1 % (0.0-5.0); HEMATOCRIT. 30.3 % (42.0-52.0); HEMOGLOBIN. 10.1 g/dL (14.0-18.0); LYMPHOCYTES % 15.7 % (20.0-50.0); MEAN CORPUSCULAR HEMOGLOBIN 31.9 pg (28.0-32.0); MEAN CORPUSCULAR VOLUME 95.4 fL (80.0-94.0); MEAN PLATELET VOLUME 8.4 fl (7.4-10.4); MONOCYTES % 6.3 % (2.0-8.0); NEUTROPHILS % 74.4 % (40.0-76.0); PLATELET 461 x1000/uL (130-400); RED BLOOD CELL COUNT 3.17 mill/uL (4.7-6.1); RED CELL DISTRIBUTION WIDTH 15.5 % (11.6-14.6)
[2018-08-10 07:32] LABS: CHLORIDE 109 mEq/L (98-107)
[2018-08-10] MEDS ORDERED: MULTIVITAMINS,THER W-MINERALS TABLET PO SCH (07:45)
[2018-08-10 08:00] VITALS: BP 156/98
[2018-08-10] MEDS: LIPASE/PROTEASE/AMYLASE 4,200/14,200/24,600 UNITS CAP DR PO SCH ×3 (08:42→18:04)
[2018-08-10] MEDS: DRONABINOL 2.5MG CAPSULE PO SCH (08:43)
[2018-08-10] MEDS: THIAMINE HCL 100MG TABLET PO SCH (08:44)
[2018-08-10] MEDS: LEVETIRACETAM 500MG TABLET PO SCH ×2 (08:44→21:23)
[2018-08-10] MEDS: ASPIRIN 81MG TABLET PO SCH (08:45)
[2018-08-10] MEDS: AMLODIPINE 5MG TABLET PO SCH (08:45)
[2018-08-10] MEDS: PANTOPRAZOLE SODIUM 40 MG/VIAL IV SCH (08:47)
[2018-08-10] MEDS: DULOXETINE HCL 30MG DR CAPSULE PO SCH (08:47)
[2018-08-10] MEDS: METOPROLOL TARTRATE 25MG TABLET PO SCH ×2 (08:47→21:23)
[2018-08-10] MEDS: FOLIC ACID 1MG TABLET PO SCH (08:52)
[2018-08-10] MEDS: NYSTATIN POWDER 15GM TOP SCH ×3 (10:16→18:04)
[2018-08-10] MEDS: NYSTATIN 100,000 UNITS/GM CREAM 15GM TOP SCH ×2 (10:17→21:24)
[2018-08-10 12:00] VITALS: BP 149/90
[2018-08-10] MEDS: AZITHROMYCIN 500 MG TABLET PO SCH (12:24)
[2018-08-10] MEDS: MULTIVITAMINS,THER W-MINERALS TABLET PO SCH (12:24)
[2018-08-10 16:00] VITALS: BP 139/90
[2018-08-10 19:45] VITALS: BP 134/93
[2018-08-11] VITALS (7 sets, daily range): BP systolic 124–150; BP diastolic 78–94
[2018-08-11 06:08] LABS: EOSINOPHILS % 1.6 % (0.0-5.0); HEMATOCRIT. 30.1 % (42.0-52.0); HEMOGLOBIN. 9.9 g/dL (14.0-18.0); LYMPHOCYTES % 17.1 % (20.0-50.0); MEAN CORPUSCULAR HEMOGLOBIN 31.4 pg (28.0-32.0); MEAN CORPUSCULAR VOLUME 95.4 fL (80.0-94.0); MEAN PLATELET VOLUME 8.8 fl (7.4-10.4); MONOCYTES % 5.5 % (2.0-8.0); NEUTROPHILS % 74.8 % (40.0-76.0); PLATELET 482 x1000/uL (130-400); RED BLOOD CELL COUNT 3.16 mill/uL (4.7-6.1); RED CELL DISTRIBUTION WIDTH 15.1 % (11.6-14.6)
[2018-08-11 06:20] LABS: CHLORIDE 109 mEq/L (98-107)
[2018-08-11] MEDS: BLOOD SUGAR DIAGNOSTIC STRIP TEST SCH ×4 (07:10→21:00)
[2018-08-11] MEDS: INSULIN LISPRO 100 UNITS/ML SUBCUT SCH ×4 (07:39→21:00)
[2018-08-11] MEDS ORDERED: LISINOPRIL 5MG TABLET PO SCH (09:00)
[2018-08-11] MEDS: LIPASE/PROTEASE/AMYLASE 4,200/14,200/24,600 UNITS CAP DR PO SCH ×3 (09:22→17:41)
[2018-08-11] MEDS: DRONABINOL 2.5MG CAPSULE PO SCH (09:22)
[2018-08-11] MEDS: AZITHROMYCIN 500 MG TABLET PO SCH (09:24)
[2018-08-11] MEDS: MULTIVITAMINS,THER W-MINERALS TABLET PO SCH (09:24)
[2018-08-11] MEDS: ASPIRIN 81MG TABLET PO SCH (09:24)
[2018-08-11] MEDS: FOLIC ACID 1MG TABLET PO SCH (09:24)
[2018-08-11] MEDS: DULOXETINE HCL 30MG DR CAPSULE PO SCH (09:24)
[2018-08-11] MEDS: THIAMINE HCL 100MG TABLET PO SCH (09:24)
[2018-08-11] MEDS: FAMOTIDINE 20MG/2ML VIAL IV SCH ×2 (09:24→21:00)
[2018-08-11] MEDS: METOPROLOL TARTRATE 25MG TABLET PO SCH ×2 (09:24→21:00)
[2018-08-11] MEDS: LEVETIRACETAM 500MG TABLET PO SCH ×2 (09:24→21:00)
[2018-08-11] MEDS: NYSTATIN POWDER 15GM TOP SCH ×3 (09:25→17:41)
[2018-08-11] MEDS: NYSTATIN 100,000 UNITS/GM CREAM 15GM TOP SCH ×2 (09:25→21:00)
== END 2018-08-11 23:05 | DRG 720 ==
LOC: ER 11:44 → 7WST 15:19 → EDBEDREQ 15:22 → ENRESERV 20:29 → 8WST 08-02 12:41
PROVIDERS: ADMIT Internal Medicine; ATTEND Internal Medicine
PROC: 0W9G3ZZ Drainage of Peritoneal Cavity, Percutaneous Approach (ICD-10-PCS; principal; 2018-07-30)
PROC: 0W9G3ZZ Drainage of Peritoneal Cavity, Percutaneous Approach (ICD-10-PCS; 2018-08-07)
DX: A41.9 Sepsis, unspecified organism (principal); I63.9 Cerebral infarction, unspecified; L89.159 Pressure ulcer of sacral region, unspecified stage; L89.109 Pressure ulcer of unspecified part of back, unspecified stage; J18.9 Pneumonia, unspecified organism; D68.9 Coagulation defect, unspecified; E83.42 Hypomagnesemia; A04.5 Campylobacter enteritis; I11.0 Hypertensive heart disease with heart failure; G82.20 Paraplegia, unspecified; I50.40 Unspecified combined systolic (congestive) and diastolic (congestive) heart failure; K70.31 Alcoholic cirrhosis of liver with ascites; I45.81 Long QT syndrome; K86.1 Other chronic pancreatitis; J44.9 Chronic obstructive pulmonary disease, unspecified; D63.8 Anemia in other chronic diseases classified elsewhere; E11.9 Type 2 diabetes mellitus without complications; K52.9 Noninfective gastroenteritis and colitis, unspecified; K40.90 Unilateral inguinal hernia, without obstruction or gangrene, not specified as recurrent; J98.11 Atelectasis; N39.0 Urinary tract infection, site not specified; E87.6 Hypokalemia; D53.9 Nutritional anemia, unspecified; E78.00 Pure hypercholesterolemia, unspecified; E78.5 Hyperlipidemia, unspecified; F10.20 Alcohol dependence, uncomplicated; F17.210 Nicotine dependence, cigarettes, uncomplicated; G37.2 Central pontine myelinolysis; G40.909 Epilepsy, unspecified, not intractable, without status epilepticus; I25.10 Atherosclerotic heart disease of native coronary artery without angina pectoris; K42.9 Umbilical hernia without obstruction or gangrene; M47.9 Spondylosis, unspecified; M48.02 Spinal stenosis, cervical region; L89.899 Pressure ulcer of other site, unspecified stage; M48.061 Spinal stenosis, lumbar region without neurogenic claudication; M50.321 Other cervical disc degeneration at C4-C5 level; M51.36 Other intervertebral disc degeneration, lumbar region; Z86.73 Personal history of transient ischemic attack (TIA), and cerebral infarction without residual deficits; Z91.19 Patient's noncompliance with other medical treatment and regimen; Z88.0 Allergy status to penicillin
CPT/HCPCS: 36415; 49083; 70551; 71045; 72141; 72146; 72148; 74176; 78806; 80048; 80061; 80305; 80320; 82040; 82270; 82550; 82553; 82705; 82728; 82962; 83540; 83550; 83615; 83735; 83880; 84100; 84134; 84145; 84484; 86850; 86900; 87015; 87045; 87427; 87449; 87493; 89055; 92610; 93005; 93306; 93880; 93970; 96365; 96375; 97162; 99285; A6261; A9547; C1893; C9113; J0696; J1200; J1815; J1956; J2270; J2405; J3475; J3490; J7050; J7620; Q0167; G0480

== ENCOUNTER 2018-09-02 10:25 | Emergency (ER) | payer MEDICAID ==
[~2018-09-02] VITALS: Ht 188 cm; Wt 59.0 kg
[2018-09-02] MEDS ORDERED: MORPHINE SULFATE 4 MG/ML CPJ (NOT FOR IM USE) IV STA (12:12)
[2018-09-02] MEDS ORDERED: ONDANSETRON HCL 4MG/2ML INJ IV STA (12:12)
[2018-09-02 12:46] LABS: CHLORIDE 102 mEq/L (98-107)
[2018-09-02 12:49] LABS: BASOPHILS % 0.3 % (0.0-2.0); EOSINOPHILS % 0.4 % (0.0-5.0); HEMATOCRIT. 31.7 % (42.0-52.0); HEMOGLOBIN. 10.4 g/dL (14.0-18.0); LYMPHOCYTES % 11.7 % (20.0-50.0); MEAN CORPUSCULAR HEMOGLOBIN 30.1 pg (28.0-32.0); MEAN CORPUSCULAR VOLUME 91.7 fL (80.0-94.0); MEAN PLATELET VOLUME 7.9 fl (7.4-10.4); MONOCYTES % 6.4 % (2.0-8.0); NEUTROPHILS % 81.2 % (40.0-76.0); PLATELET 501 x1000/uL (130-400); RED BLOOD CELL COUNT 3.45 mill/uL (4.7-6.1); RED CELL DISTRIBUTION WIDTH 15.4 % (11.6-14.6)
[2018-09-02 13:19] LABS: INR 1.4; PROTHROMBIN TIME 14.1 sec (9.6-11.0)
[2018-09-02] MEDS ORDERED: LOPERAMIDE 2 MG/10 ML UDC PO ONE (13:30)
[2018-09-02 14:51] LABS: CHLORIDE 103 mEq/L (98-107)
[2018-09-02] MEDS ORDERED: SODIUM BICARBONATE 4% (2.4MEQ) 5ML VIAL IV ONE (15:05)
[2018-09-02 17:21] LABS: CLARITY URINE CLOUDY (CLEAR); COLOR URINE DARK YELLOW (YELLOW); KETONES URINE TRACE (NEGATIVE); LEUKOCYTE ESTERASE URINE 2+ (NEGATIVE); NITRITE URINE POSITIVE (NEGATIVE); OCCULT BLOOD URINE NEGATIVE (NEGATIVE); PROTEIN URINE 1+ (NEGATIVE); SPECIFIC GRAVITY URINE 1.024 (1.005-1.030)
[2018-09-02] MEDS ORDERED: LEVOFLOXACIN 500MG PREMIX 100 ML IV ONE (18:00)
[2018-09-02 19:28] VITALS: BP 138/106
[2018-09-02 19:56] LABS: *AMPHETAMINES SCREEN URINE NEGATIVE (NEGATIVE); *BARBITURATES SCREEN URINE NEGATIVE (NEGATIVE); *BENZODIAZEPINES SCREEN URINE NEGATIVE (NEGATIVE); *COCAINE SCREEN URINE NEGATIVE (NEGATIVE); METHADONE URINE SCREEN NEGATIVE (NEGATIVE); OPIATES URINE SCREEN PRESUMTIVE POSITIVE (NEGATIVE); PHENCYCLIDINE URINE SCREEN NEGATIVE (NEGATIVE)
[2018-09-02 19:57] LABS: CANNABINOID URINE SCREEN PRESUMTIVE POSITIVE (NEGATIVE)
== END 2018-09-02 20:37 | disposition home or self-care (01) ==
LOC: ER 10:25
DX: N39.0 Urinary tract infection, site not specified (principal); R18.8 Other ascites; F12.10 Cannabis abuse, uncomplicated; F17.200 Nicotine dependence, unspecified, uncomplicated; E78.00 Pure hypercholesterolemia, unspecified; E11.9 Type 2 diabetes mellitus without complications; Z86.73 Personal history of transient ischemic attack (TIA), and cerebral infarction without residual deficits; Z79.899 Other long term (current) drug therapy; Z88.0 Allergy status to penicillin; Z79.82 Long term (current) use of aspirin
CPT/HCPCS: 36415; 49083; 74176; 80048; 80053; 80305; 81003; 83690; 85025; 85610; 96374; 96375; 99285; J1956; J2270; J2405; J3490; Z7610; A4315

== ENCOUNTER 2018-09-18 14:12 | Inpatient (IN) | payer MEDICAID ==
[~2018-09-18] VITALS: Ht 172.7 cm; Wt 57.6 kg
[~2018-09-18 14:12] MED LIST changes: -ASPI-1159 PO; +ASPI-1393 PO; -LEVE500T78 PO; +LEVE500T98 PO
[2018-09-18] MEDS ORDERED: ONDANSETRON HCL 4MG/2ML INJ IV STA (14:41)
[2018-09-18] MEDS ORDERED: SODIUM CHLORIDE 0.9% 1,000 ML IV ONE (14:41)
[2018-09-18] MEDS ORDERED: KETOROLAC 30MG/ML VIAL IV STA (14:41)
[2018-09-18 15:14] LABS: CHLORIDE 101 mEq/L (98-107)
[2018-09-18 15:15] LABS: INR 1.4; PROTHROMBIN TIME 14.4 sec (9.6-11.0)
[2018-09-18 15:18] LABS: ETHANOL BLOOD < 10 mg/dL
[2018-09-18 15:24] LABS: BASOPHILS % 0.4 % (0.0-2.0); EOSINOPHILS % 0.9 % (0.0-5.0); HEMATOCRIT. 30.1 % (42.0-52.0); HEMOGLOBIN. 10.2 g/dL (14.0-18.0); LYMPHOCYTES % 16.4 % (20.0-50.0); MEAN CORPUSCULAR HEMOGLOBIN 30.9 pg (28.0-32.0); MEAN CORPUSCULAR VOLUME 91.1 fL (80.0-94.0); MEAN PLATELET VOLUME 8.1 fl (7.4-10.4); MONOCYTES % 6.4 % (2.0-8.0); NEUTROPHILS % 75.9 % (40.0-76.0); PLATELET 503 x1000/uL (130-400); RED BLOOD CELL COUNT 3.31 mill/uL (4.7-6.1); RED CELL DISTRIBUTION WIDTH 16.6 % (11.6-14.6)
[2018-09-18] MEDS ORDERED: POTASSIUM CHLORIDE 20MEQ TABLET SR PO SCH (15:45)
[2018-09-19 00:39] VITALS: BP 121/82
[2018-09-19] MEDS ORDERED: IPRATROPIUM/ALBUTEROL 0.5-3(2.5)MG/3ML NEB INH PRN (01:00)
[2018-09-19] MEDS ORDERED: ONDANSETRON HCL 4MG/2ML INJ IV PRN (01:00)
[2018-09-19] MEDS ORDERED: DOCUSATE SODIUM 100MG CAPSULE PO PRN (01:00)
[2018-09-19] MEDS ORDERED: ACETAMINOPHEN 325MG TABLET PO PRN (01:00)
[2018-09-19 07:18] LABS: CREATINE KINASE 59 IU/L (39-308)
[2018-09-19 07:19] LABS: CREATINE KINASE MB FRACTION 6.6 ng/mL (0.5-3.6)
[2018-09-19 08:00] VITALS: BP 100/77
[2018-09-19 12:00] VITALS: BP 106/76
[2018-09-19] MEDS: DULOXETINE HCL 30MG DR CAPSULE PO SCH (13:30)
[2018-09-19] MEDS: LORATADINE 10MG TABLET PO SCH (13:30)
[2018-09-19 16:00] VITALS: BP 111/73
[2018-09-19 16:34] LABS: CREATINE KINASE 55 IU/L (39-308)
[2018-09-19 16:36] LABS: CREATINE KINASE MB FRACTION 5.1 ng/mL (0.5-3.6)
[2018-09-19] MEDS: METOPROLOL TARTRATE 25MG TABLET PO SCH (21:00)
[2018-09-19 21:27] LABS: INR 1.4
[2018-09-19] MEDS: LEVETIRACETAM 500MG TABLET PO SCH (21:30)
[2018-09-19] MEDS: NYSTATIN POWDER 15GM TOP SCH (21:30)
[2018-09-19] MEDS: LOPERAMIDE HCL 2MG CAPSULE PO PRN (23:35)
[2018-09-19 23:56] LABS: CLARITY URINE CLEAR (CLEAR); COLOR URINE DARK YELLOW (YELLOW); KETONES URINE TRACE (NEGATIVE); LEUKOCYTE ESTERASE URINE 1+ (NEGATIVE); NITRITE URINE NEGATIVE (NEGATIVE); OCCULT BLOOD URINE NEGATIVE (NEGATIVE); PROTEIN URINE NEGATIVE (NEGATIVE); SPECIFIC GRAVITY URINE 1.021 (1.005-1.030)
[2018-09-20 00:19] LABS: *BENZODIAZEPINES SCREEN URINE NEGATIVE (NEGATIVE)
[2018-09-20 00:20] LABS: *AMPHETAMINES SCREEN URINE NEGATIVE (NEGATIVE); *COCAINE SCREEN URINE NEGATIVE (NEGATIVE); CANNABINOID URINE SCREEN PRESUMTIVE POSITIVE (NEGATIVE); METHADONE URINE SCREEN NEGATIVE (NEGATIVE); OPIATES URINE SCREEN PRESUMTIVE POSITIVE (NEGATIVE); PHENCYCLIDINE URINE SCREEN NEGATIVE (NEGATIVE)
[2018-09-20 00:21] LABS: *BARBITURATES SCREEN URINE NEGATIVE (NEGATIVE)
[2018-09-20] MEDS: HYDROCODONE/ACETAMINOPHEN 5/325MG TABLET PO PRN ×2 (06:02→20:51)
[2018-09-20] MEDS: OMEPRAZOLE 20MG CAPSULE EXTENDED RELEASE PO SCH (06:52)
[2018-09-20 07:41] LABS: BASOPHILS % 0.5 % (0.0-2.0); EOSINOPHILS % 0.5 % (0.0-5.0); HEMATOCRIT. 29.4 % (42.0-52.0); HEMOGLOBIN. 10.3 g/dL (14.0-18.0); LYMPHOCYTES % 12.7 % (20.0-50.0); MEAN CORPUSCULAR HEMOGLOBIN 31.8 pg (28.0-32.0); MEAN CORPUSCULAR VOLUME 90.5 fL (80.0-94.0); MEAN PLATELET VOLUME 8.3 fl (7.4-10.4); MONOCYTES % 5.2 % (2.0-8.0); NEUTROPHILS % 81.1 % (40.0-76.0); PLATELET 510 x1000/uL (130-400); RED BLOOD CELL COUNT 3.24 mill/uL (4.7-6.1); RED CELL DISTRIBUTION WIDTH 17.1 % (11.6-14.6)
[2018-09-20 08:16] LABS: CHLORIDE 104 mEq/L (98-107)
[2018-09-20 08:40] LABS: LDL CHOLESTEROL 54 mg/dL (5-100)
[2018-09-20 08:41] LABS: HDL CHOLESTEROL 36 mg/dL (40-59)
[2018-09-20] MEDS: LISINOPRIL 5MG TABLET PO SCH (09:00)
[2018-09-20] MEDS: METOPROLOL TARTRATE 25MG TABLET PO SCH ×2 (09:00→20:51)
[2018-09-20] MEDS: MULTIVITAMINS,THER W-MINERALS TABLET PO SCH (09:35)
[2018-09-20] MEDS: LEVETIRACETAM 500MG TABLET PO SCH ×2 (09:35→20:51)
[2018-09-20] MEDS: LORATADINE 10MG TABLET PO SCH (09:35)
[2018-09-20] MEDS: NYSTATIN POWDER 15GM TOP SCH ×2 (09:35→20:52)
[2018-09-20] MEDS: DULOXETINE HCL 30MG DR CAPSULE PO SCH (09:35)
[2018-09-20 12:00] VITALS: BP 131/98
[2018-09-20] MEDS ORDERED: SODIUM BICARBONATE 4% (2.4MEQ) 5ML VIAL IV ONE (12:11)
[2018-09-20] MEDS ORDERED: LIDOCAINE HCL 1% 20ML VIAL (Pyxis) INJ ONE (12:11)
[2018-09-20 16:00] VITALS: BP 125/91
[2018-09-20 20:00] VITALS: BP 116/80
[2018-09-20] MEDS: LOPERAMIDE HCL 2MG CAPSULE PO PRN (20:50)
[2018-09-21] VITALS: BP 100/69
[2018-09-21 04:00] VITALS: BP 113/83
[2018-09-21] MEDS: OMEPRAZOLE 20MG CAPSULE EXTENDED RELEASE PO SCH (06:19)
[2018-09-21 06:57] LABS: BASOPHILS % 0.4 % (0.0-2.0); EOSINOPHILS % 1.2 % (0.0-5.0); HEMATOCRIT. 27.9 % (42.0-52.0); HEMOGLOBIN. 9.3 g/dL (14.0-18.0); LYMPHOCYTES % 17.8 % (20.0-50.0); MEAN CORPUSCULAR HEMOGLOBIN 30.6 pg (28.0-32.0); MEAN CORPUSCULAR VOLUME 92.1 fL (80.0-94.0); MEAN PLATELET VOLUME 8.3 fl (7.4-10.4); MONOCYTES % 6.3 % (2.0-8.0); NEUTROPHILS % 74.3 % (40.0-76.0); PLATELET 476 x1000/uL (130-400); RED BLOOD CELL COUNT 3.03 mill/uL (4.7-6.1); RED CELL DISTRIBUTION WIDTH 17.2 % (11.6-14.6)
[2018-09-21 07:49] LABS: CHLORIDE 104 mEq/L (98-107)
[2018-09-21] MEDS: NYSTATIN POWDER 15GM TOP SCH ×2 (09:00→22:13)
[2018-09-21] MEDS: DULOXETINE HCL 30MG DR CAPSULE PO SCH (09:32)
[2018-09-21] MEDS: LORATADINE 10MG TABLET PO SCH (09:32)
[2018-09-21] MEDS: LISINOPRIL 5MG TABLET PO SCH (09:37)
[2018-09-21] MEDS: LEVETIRACETAM 500MG TABLET PO SCH ×2 (09:38→22:13)
[2018-09-21] MEDS: METOPROLOL TARTRATE 25MG TABLET PO SCH ×2 (09:38→22:13)
[2018-09-21] MEDS: THIAMINE HCL 100MG TABLET PO SCH (09:38)
[2018-09-21] MEDS: MULTIVITAMINS,THER W-MINERALS TABLET PO SCH (09:38)
[2018-09-21] MEDS: FOLIC ACID 1MG TABLET PO SCH (09:38)
[2018-09-21 12:14] VITALS: BP 122/92
[2018-09-21 20:00] VITALS: BP 116/83
[2018-09-22] VITALS (7 sets, daily range): BP systolic 107–124; BP diastolic 74–88
[2018-09-22] MEDS: OMEPRAZOLE 20MG CAPSULE EXTENDED RELEASE PO SCH ×2 (06:32→07:20)
[2018-09-22 07:01] LABS: BASOPHILS % 0.5 % (0.0-2.0); EOSINOPHILS % 0.8 % (0.0-5.0); HEMATOCRIT. 29.8 % (42.0-52.0); HEMOGLOBIN. 9.8 g/dL (14.0-18.0); LYMPHOCYTES % 13.6 % (20.0-50.0); MEAN CORPUSCULAR HEMOGLOBIN 30.4 pg (28.0-32.0); MEAN CORPUSCULAR VOLUME 92.8 fL (80.0-94.0); MEAN PLATELET VOLUME 8.6 fl (7.4-10.4); MONOCYTES % 6.2 % (2.0-8.0); NEUTROPHILS % 78.9 % (40.0-76.0); PLATELET 452 x1000/uL (130-400); RED BLOOD CELL COUNT 3.21 mill/uL (4.7-6.1); RED CELL DISTRIBUTION WIDTH 17.1 % (11.6-14.6)
[2018-09-22 07:24] LABS: CHLORIDE 104 mEq/L (98-107)
[2018-09-22] MEDS: HYDROCODONE/ACETAMINOPHEN 5/325MG TABLET PO PRN (08:24)
[2018-09-22] MEDS: NYSTATIN POWDER 15GM TOP SCH ×3 (09:00→21:29)
[2018-09-22] MEDS: METOPROLOL TARTRATE 25MG TABLET PO SCH ×2 (09:00→21:24)
[2018-09-22] MEDS: LISINOPRIL 5MG TABLET PO SCH (09:00)
[2018-09-22] MEDS: LEVETIRACETAM 500MG TABLET PO SCH ×2 (10:09→21:24)
[2018-09-22] MEDS: MULTIVITAMINS,THER W-MINERALS TABLET PO SCH (10:09)
[2018-09-22] MEDS: LORATADINE 10MG TABLET PO SCH (10:09)
[2018-09-22] MEDS: DULOXETINE HCL 30MG DR CAPSULE PO SCH (10:09)
[2018-09-22] MEDS: THIAMINE HCL 100MG TABLET PO SCH (10:09)
[2018-09-22] MEDS: FOLIC ACID 1MG TABLET PO SCH (10:09)
[2018-09-22] MEDS: ZOLPIDEM TARTRATE 5MG TABLET PO PRN (23:14)
[2018-09-23 07:12] LABS: BASOPHILS % 0.5 % (0.0-2.0); EOSINOPHILS % 1.2 % (0.0-5.0); HEMATOCRIT. 27.6 % (42.0-52.0); HEMOGLOBIN. 9.4 g/dL (14.0-18.0); LYMPHOCYTES % 15.7 % (20.0-50.0); MEAN CORPUSCULAR VOLUME 91.1 fL (80.0-94.0); MEAN PLATELET VOLUME 8.6 fl (7.4-10.4); MONOCYTES % 8.3 % (2.0-8.0); NEUTROPHILS % 74.3 % (40.0-76.0); PLATELET 411 x1000/uL (130-400); RED BLOOD CELL COUNT 3.03 mill/uL (4.7-6.1); RED CELL DISTRIBUTION WIDTH 17.3 % (11.6-14.6)
[2018-09-23 08:00] VITALS: BP 99/66
[2018-09-23 08:36] LABS: CHLORIDE 105 mEq/L (98-107)
[2018-09-23] MEDS: MULTIVITAMINS,THER W-MINERALS TABLET PO SCH (08:36)
[2018-09-23] MEDS: LORATADINE 10MG TABLET PO SCH (08:36)
[2018-09-23] MEDS: FOLIC ACID 1MG TABLET PO SCH (08:36)
[2018-09-23] MEDS: DULOXETINE HCL 30MG DR CAPSULE PO SCH (08:36)
[2018-09-23] MEDS: LEVETIRACETAM 500MG TABLET PO SCH ×2 (08:36→21:39)
[2018-09-23] MEDS: OMEPRAZOLE 20MG CAPSULE EXTENDED RELEASE PO SCH (08:36)
[2018-09-23] MEDS: THIAMINE HCL 100MG TABLET PO SCH (08:36)
[2018-09-23] MEDS: METOPROLOL TARTRATE 25MG TABLET PO SCH ×2 (08:43→21:40)
[2018-09-23] MEDS: LISINOPRIL 5MG TABLET PO SCH (08:43)
[2018-09-23] MEDS: NYSTATIN POWDER 15GM TOP SCH ×3 (09:00→21:41)
[2018-09-23] MEDS: LOPERAMIDE HCL 2MG CAPSULE PO PRN ×2 (11:48→21:40)
[2018-09-23 12:00] VITALS: BP 111/76
[2018-09-23] MEDS ORDERED: AZITHROMYCIN 500 MG TABLET PO NR (14:00)
[2018-09-23] MEDS: FLUCONAZOLE 100MG TABLET PO SCH (14:55)
[2018-09-23 16:00] VITALS: BP 127/102
[2018-09-23 20:09] VITALS: BP 137/103
[2018-09-23] MEDS: ZOLPIDEM TARTRATE 5MG TABLET PO PRN (21:40)
[2018-09-24 00:03] VITALS: BP 133/98
[2018-09-24 06:19] LABS: BASOPHILS % 0.7 % (0.0-2.0); HEMATOCRIT. 29.6 % (42.0-52.0); HEMOGLOBIN. 9.8 g/dL (14.0-18.0); LYMPHOCYTES % 19.9 % (20.0-50.0); MEAN CORPUSCULAR HEMOGLOBIN 30.6 pg (28.0-32.0); MEAN CORPUSCULAR VOLUME 91.9 fL (80.0-94.0); MEAN PLATELET VOLUME 8.6 fl (7.4-10.4); MONOCYTES % 7.8 % (2.0-8.0); NEUTROPHILS % 70.6 % (40.0-76.0); PLATELET 432 x1000/uL (130-400); RED BLOOD CELL COUNT 3.22 mill/uL (4.7-6.1); RED CELL DISTRIBUTION WIDTH 17.6 % (11.6-14.6)
[2018-09-24 07:19] LABS: CHLORIDE 106 mEq/L (98-107)
[2018-09-24 08:12] VITALS: BP 119/66
[2018-09-24] MEDS: NYSTATIN POWDER 15GM TOP SCH ×2 (10:57→20:31)
[2018-09-24] MEDS: DULOXETINE HCL 30MG DR CAPSULE PO SCH (10:57)
[2018-09-24] MEDS: FLUCONAZOLE 100MG TABLET PO SCH (10:58)
[2018-09-24] MEDS: METOPROLOL TARTRATE 25MG TABLET PO SCH ×2 (10:58→20:31)
[2018-09-24] MEDS: OMEPRAZOLE 20MG CAPSULE EXTENDED RELEASE PO SCH (10:58)
[2018-09-24] MEDS: LORATADINE 10MG TABLET PO SCH (10:58)
[2018-09-24] MEDS: LISINOPRIL 5MG TABLET PO SCH (10:58)
[2018-09-24] MEDS: FOLIC ACID 1MG TABLET PO SCH (10:58)
[2018-09-24] MEDS: THIAMINE HCL 100MG TABLET PO SCH (11:00)
[2018-09-24] MEDS: LEVETIRACETAM 500MG TABLET PO SCH ×2 (11:00→20:31)
[2018-09-24] MEDS: MULTIVITAMINS,THER W-MINERALS TABLET PO SCH (11:00)
[2018-09-24 12:00] VITALS: BP 130/95
[2018-09-24 15:15] VITALS: BP 123/89
[2018-09-24 19:52] VITALS: BP 127/94
[2018-09-24] MEDS: LOPERAMIDE HCL 2MG CAPSULE PO PRN (20:38)
[2018-09-24] MEDS ORDERED: ZOLPIDEM TARTRATE 5MG TABLET PO PRN (21:15)
[2018-09-25 06:18] LABS: HIV SCREEN 4G Non Reactive (Non Reactive)
[2018-09-25] MEDS: OMEPRAZOLE 20MG CAPSULE EXTENDED RELEASE PO SCH (06:36)
[2018-09-25 08:07] VITALS: BP 122/93
[2018-09-25] MEDS: FLUCONAZOLE 100MG TABLET PO SCH (10:38)
[2018-09-25] MEDS: LISINOPRIL 5MG TABLET PO SCH (10:38)
[2018-09-25] MEDS: FOLIC ACID 1MG TABLET PO SCH (10:39)
[2018-09-25] MEDS: LORATADINE 10MG TABLET PO SCH (10:39)
[2018-09-25] MEDS: MULTIVITAMINS,THER W-MINERALS TABLET PO SCH (10:39)
[2018-09-25] MEDS: DULOXETINE HCL 30MG DR CAPSULE PO SCH (10:39)
[2018-09-25] MEDS: THIAMINE HCL 100MG TABLET PO SCH (10:39)
[2018-09-25] MEDS: METOPROLOL TARTRATE 25MG TABLET PO SCH (10:40)
[2018-09-25] MEDS: NYSTATIN POWDER 15GM TOP SCH (10:40)
[2018-09-25] MEDS: LEVETIRACETAM 500MG TABLET PO SCH (10:40)
[2018-09-25 14:59] VITALS: BP 125/74
== END 2018-09-25 15:40 | disposition home health service (06) | DRG 45 ==
LOC: ER 14:12 → 6WST 22:35 → EDBEDREQTM 22:39 → EDBEDREQ 22:39 → ENRESERV 23:04
PROVIDERS: ADMIT Internal Medicine; ATTEND Internal Medicine
PROC: 0W9G3ZZ Drainage of Peritoneal Cavity, Percutaneous Approach (ICD-10-PCS; 2018-09-20)
PROC: 4A00X4Z Measurement of Central Nervous Electrical Activity, External Approach (ICD-10-PCS; principal; 2018-09-23)
DX: I63.9 Cerebral infarction, unspecified (principal); E43 Unspecified severe protein-calorie malnutrition; K85.90 Acute pancreatitis without necrosis or infection, unspecified; A04.5 Campylobacter enteritis; K57.91 Diverticulosis of intestine, part unspecified, without perforation or abscess with bleeding; D68.9 Coagulation defect, unspecified; I11.0 Hypertensive heart disease with heart failure; I50.42 Chronic combined systolic (congestive) and diastolic (congestive) heart failure; G37.2 Central pontine myelinolysis; E87.1 Hypo-osmolality and hyponatremia; K86.1 Other chronic pancreatitis; K70.31 Alcoholic cirrhosis of liver with ascites; E86.0 Dehydration; K40.90 Unilateral inguinal hernia, without obstruction or gangrene, not specified as recurrent; G89.29 Other chronic pain; K80.20 Calculus of gallbladder without cholecystitis without obstruction; M48.02 Spinal stenosis, cervical region; M48.061 Spinal stenosis, lumbar region without neurogenic claudication; E11.9 Type 2 diabetes mellitus without complications; E87.6 Hypokalemia; E78.00 Pure hypercholesterolemia, unspecified; G40.909 Epilepsy, unspecified, not intractable, without status epilepticus; R63.0 Anorexia; J44.9 Chronic obstructive pulmonary disease, unspecified; I25.10 Atherosclerotic heart disease of native coronary artery without angina pectoris; M47.896 Other spondylosis, lumbar region; M48.07 Spinal stenosis, lumbosacral region; M47.897 Other spondylosis, lumbosacral region; R74.8 Abnormal levels of other serum enzymes; A51.0 Primary genital syphilis; F19.10 Other psychoactive substance abuse, uncomplicated; D53.9 Nutritional anemia, unspecified; D50.9 Iron deficiency anemia, unspecified; D63.8 Anemia in other chronic diseases classified elsewhere; K42.9 Umbilical hernia without obstruction or gangrene; D47.3 Essential (hemorrhagic) thrombocythemia; F17.210 Nicotine dependence, cigarettes, uncomplicated; R13.10 Dysphagia, unspecified; E78.5 Hyperlipidemia, unspecified; R32 Unspecified urinary incontinence; F10.10 Alcohol abuse, uncomplicated; Y90.0 Blood alcohol level of less than 20 mg/100 ml; Z91.19 Patient's noncompliance with other medical treatment and regimen; Z79.899 Other long term (current) drug therapy; Z79.82 Long term (current) use of aspirin; Z88.0 Allergy status to penicillin; Z71.6 Tobacco abuse counseling
CPT/HCPCS: 36415; 49083; 70551; 74176; 80048; 80061; 80305; 80320; 82140; 82270; 82550; 82553; 82962; 84443; 84484; 86592; 87077; 87389; 93005; 96374; 96375; 97162; 97166; 97530; 99285; J1885; J2405; J3490; J7030; G0480

== ENCOUNTER 2018-10-13 23:54 | Inpatient (IN) | payer MEDICAID ==
[~2018-10-13] VITALS: Ht 188 cm; Wt 63.0 kg
[2018-10-14] MEDS ORDERED: SODIUM CHLORIDE 0.9% 1,000 ML IV ONE (01:21)
[2018-10-14] MEDS ORDERED: MORPHINE SULFATE 4 MG/ML CPJ (NOT FOR IM USE) IV STA (01:21)
[2018-10-14] MEDS ORDERED: ONDANSETRON HCL 4MG/2ML INJ IV STA (01:21)
[2018-10-14 01:28] LABS: HEMATOCRIT. 34.2 % (42.0-52.0); HEMOGLOBIN. 11.7 g/dL (14.0-18.0); MEAN CORPUSCULAR HEMOGLOBIN 31.1 pg (28.0-32.0); MEAN CORPUSCULAR VOLUME 90.8 fL (80.0-94.0); MEAN PLATELET VOLUME 8.9 fl (7.4-10.4); PLATELET 597 x1000/uL (130-400); RED BLOOD CELL COUNT 3.77 mill/uL (4.7-6.1); RED CELL DISTRIBUTION WIDTH 18.1 % (11.6-14.6)
[2018-10-14 01:36] LABS: INR 1.3
[2018-10-14 01:38] LABS: CHLORIDE 99 mEq/L (98-107)
[2018-10-14 04:56] LABS: PLATELET ESTIMATE INCREASED
[2018-10-14] MEDS ORDERED: SODIUM CHLORIDE 0.9% 1,000 ML IV SCH ×2 (04:56→08:08)
[2018-10-14 06:53] VITALS: BP 124/86
[2018-10-14 08:00] VITALS: BP 129/91
[2018-10-14 09:00] VITALS: BP 129/91
[2018-10-14 12:00] VITALS: BP 148/95
[2018-10-14 16:00] VITALS: BP 138/97
[2018-10-14 20:00] VITALS: BP 111/76
[2018-10-15] VITALS: BP 133/89
[2018-10-15 04:00] VITALS: BP 132/84
[2018-10-15 06:06] LABS: BASOPHILS % 0.9 % (0.0-2.0); HEMATOCRIT. 27.6 % (42.0-52.0); HEMOGLOBIN. 9.3 g/dL (14.0-18.0); LYMPHOCYTES % 9.6 % (20.0-50.0); MEAN CORPUSCULAR VOLUME 92.3 fL (80.0-94.0); MEAN PLATELET VOLUME 8.7 fl (7.4-10.4); MONOCYTES % 6.4 % (2.0-8.0); NEUTROPHILS % 83.1 % (40.0-76.0); PLATELET 475 x1000/uL (130-400); RED BLOOD CELL COUNT 2.99 mill/uL (4.7-6.1); RED CELL DISTRIBUTION WIDTH 17.8 % (11.6-14.6)
[2018-10-15 06:36] LABS: CHLORIDE 107 mEq/L (98-107)
[2018-10-15 06:49] LABS: PHOSPHORUS 5.2 mg/dL (2.5-4.9)
[2018-10-15 08:00] VITALS: BP 124/78
[2018-10-15 12:00] VITALS: BP 118/73
[2018-10-15] MEDS ORDERED: LIDOCAINE HCL 1% 20ML VIAL (Pyxis) INJ ONE (13:36)
[2018-10-15] MEDS ORDERED: SODIUM BICARBONATE 4% (2.4MEQ) 5ML VIAL IV ONE (13:37)
[2018-10-15 16:00] VITALS: BP 117/78
[2018-10-15] MEDS ORDERED: NON FORMULARY PATIENT HOME MED XX SCH (16:15)
[2018-10-15] MEDS: MULTIVITAMINS,THER W-MINERALS TABLET PO SCH ×2 (16:45→17:23)
[2018-10-15] MEDS ORDERED: ZOLPIDEM TARTRATE 5MG TABLET PO PRN (16:45)
[2018-10-15] MEDS: ASPIRIN 81MG TABLET PO SCH (17:22)
[2018-10-15] MEDS: ENOXAPARIN 60MG/0.6ML SYR SUBCUT SCH (17:26)
[2018-10-15] MEDS ORDERED: SODIUM POLYSTYRENE SULFONATE 15 G/60 ML BOT PO NR (18:00)
[2018-10-15] MEDS ORDERED: MAGNESIUM 2 G PREMIX 50 ML IV NR (18:00)
[2018-10-15] MEDS: ONDANSETRON HCL 4MG/2ML INJ IV PRN (18:09)
[2018-10-15] MEDS: MORPHINE SULFATE 2 MG/ML CPJ (NOT FOR IM USE) IV PRN (18:11)
[2018-10-15 20:00] VITALS: BP 108/69
[2018-10-15] MEDS: DEXT 5%/0.9% NACL 1,000 ML IV SCH (20:05)
[2018-10-15] MEDS: PANTOPRAZOLE SODIUM 40 MG/VIAL IV SCH (20:33)
[2018-10-15] MEDS: ATORVASTATIN CALCIUM 10MG TABLET PO SCH (20:48)
[2018-10-15] MEDS ORDERED: LEVETIRACETAM 500MG TABLET PO SCH (21:00)
[2018-10-15] MEDS: LEVETIRACETAM 500 MG in SODIUM CHLORIDE 0.9% 100 ML IV SCH (21:22)
[2018-10-16] VITALS: BP 101/66
[2018-10-16 04:00] VITALS: BP 116/70
[2018-10-16 08:00] VITALS: BP 121/67
[2018-10-16] MEDS: ASPIRIN 81MG TABLET PO SCH (08:50)
[2018-10-16] MEDS: LEVETIRACETAM 500 MG in SODIUM CHLORIDE 0.9% 100 ML IV SCH ×2 (08:50→21:04)
[2018-10-16] MEDS: MULTIVITAMINS,THER W-MINERALS TABLET PO SCH ×2 (08:50→09:00)
[2018-10-16] MEDS: PANTOPRAZOLE SODIUM 40 MG/VIAL IV SCH ×2 (08:51→20:43)
[2018-10-16] MEDS: DEXT 5%/0.9% NACL 1,000 ML IV SCH ×2 (10:25→20:48)
[2018-10-16] MEDS: ONDANSETRON HCL 4MG/2ML INJ IV PRN ×2 (10:35→21:04)
[2018-10-16 11:38] LABS: HEMATOCRIT. 25.7 % (42.0-52.0); HEMOGLOBIN. 8.4 g/dL (14.0-18.0); MEAN CORPUSCULAR HEMOGLOBIN 30.4 pg (28.0-32.0); MEAN CORPUSCULAR VOLUME 92.6 fL (80.0-94.0); MEAN PLATELET VOLUME 8.7 fl (7.4-10.4); PLATELET 384 x1000/uL (130-400); RED BLOOD CELL COUNT 2.77 mill/uL (4.7-6.1); RED CELL DISTRIBUTION WIDTH 18.1 % (11.6-14.6)
[2018-10-16 12:00] VITALS: BP 127/72
[2018-10-16 12:13] LABS: CHLORIDE 107 mEq/L (98-107)
[2018-10-16 14:08] LABS: PLATELET ESTIMATE NORMAL
[2018-10-16 16:00] VITALS: BP 111/82
[2018-10-16] MEDS: ENOXAPARIN 60MG/0.6ML SYR SUBCUT SCH (16:49)
[2018-10-16 20:19] VITALS: BP 112/69
[2018-10-16] MEDS: ATORVASTATIN CALCIUM 10MG TABLET PO SCH (20:43)
[2018-10-17] MEDS: MORPHINE SULFATE 2 MG/ML CPJ (NOT FOR IM USE) IV PRN (01:42)
[2018-10-17 02:53] LABS: CLARITY URINE TURBID (CLEAR); COLOR URINE DARK YELLOW (YELLOW); KETONES URINE NEGATIVE (NEGATIVE); LEUKOCYTE ESTERASE URINE 2+ (NEGATIVE); NITRITE URINE NEGATIVE (NEGATIVE); OCCULT BLOOD URINE 3+ (NEGATIVE); PROTEIN URINE TRACE (NEGATIVE); SPECIFIC GRAVITY URINE 1.017 (1.005-1.030)
[2018-10-17 06:57] LABS: BASOPHILS % 0.3 % (0.0-2.0); EOSINOPHILS % 0.1 % (0.0-5.0); HEMATOCRIT. 28.2 % (42.0-52.0); HEMOGLOBIN. 9.2 g/dL (14.0-18.0); LYMPHOCYTES % 11.2 % (20.0-50.0); MEAN CORPUSCULAR HEMOGLOBIN 30.8 pg (28.0-32.0); MEAN CORPUSCULAR VOLUME 94.3 fL (80.0-94.0); MEAN PLATELET VOLUME 8.6 fl (7.4-10.4); MONOCYTES % 4.1 % (2.0-8.0); NEUTROPHILS % 84.3 % (40.0-76.0); PLATELET 319 x1000/uL (130-400); RED CELL DISTRIBUTION WIDTH 18.1 % (11.6-14.6)
[2018-10-17 07:03] LABS: CHLORIDE 110 mEq/L (98-107)
[2018-10-17 07:11] LABS: PHOSPHORUS 4.3 mg/dL (2.5-4.9)
[2018-10-17] MEDS: DEXT 5%/0.9% NACL 1,000 ML IV SCH ×2 (07:31→18:00)
[2018-10-17] MEDS: MULTIVITAMINS,THER W-MINERALS TABLET PO SCH (09:00)
[2018-10-17] MEDS: PANTOPRAZOLE SODIUM 40 MG/VIAL IV SCH ×2 (09:00→21:17)
[2018-10-17] MEDS: ASPIRIN 81MG TABLET PO SCH (09:01)
[2018-10-17] MEDS: LEVETIRACETAM 500 MG in SODIUM CHLORIDE 0.9% 100 ML IV SCH ×2 (09:01→21:19)
[2018-10-17] MEDS: CEFTRIAXONE 1 G PREMIX 50 ML IV SCH (10:29)
[2018-10-17 12:00] VITALS: BP 106/75
[2018-10-17 16:00] VITALS: BP 102/55
[2018-10-17 20:00] VITALS: BP 88/53
[2018-10-17] MEDS: ATORVASTATIN CALCIUM 10MG TABLET PO SCH (21:18)
[2018-10-18] VITALS (57 sets, daily range): BP systolic 58–150; BP diastolic 35–92
[2018-10-18] MEDS: METOCLOPRAMIDE HCL 10MG/2ML VIAL IV SCH
[2018-10-18 06:46] LABS: HEMATOCRIT. 29.5 % (42.0-52.0); HEMOGLOBIN. 9.4 g/dL (14.0-18.0); MEAN CORPUSCULAR HEMOGLOBIN 31.4 pg (28.0-32.0); MEAN CORPUSCULAR VOLUME 98.8 fL (80.0-94.0); MEAN PLATELET VOLUME 8.6 fl (7.4-10.4); PLATELET 184 x1000/uL (130-400); RED BLOOD CELL COUNT 2.99 mill/uL (4.7-6.1)
[2018-10-18 07:24] LABS: CHLORIDE 114 mEq/L (98-107)
[2018-10-18 07:37] LABS: PHOSPHORUS 4.7 mg/dL (2.5-4.9)
[2018-10-18] MEDS ORDERED: LIDOCAINE HCL 1% 20ML VIAL (Pyxis) INJ ONE (08:07)
[2018-10-18] MEDS: CEFTRIAXONE 1 G PREMIX 50 ML IV SCH ×2 (09:00→14:11)
[2018-10-18] MEDS: LEVETIRACETAM 500 MG in SODIUM CHLORIDE 0.9% 100 ML IV SCH ×3 (09:00→21:00)
[2018-10-18] MEDS: MULTIVITAMINS,THER W-MINERALS TABLET PO SCH (09:00)
[2018-10-18] MEDS: PANTOPRAZOLE SODIUM 40 MG/VIAL IV SCH ×2 (09:00→22:06)
[2018-10-18] MEDS: ASPIRIN 81MG TABLET PO SCH (09:00)
[2018-10-18] MEDS: BISACODYL 10MG SUPP PR SCH (09:00)
[2018-10-18] MEDS ORDERED: DIATR MEGLU/DIATRIZOATE SOLN 120ML ONE (09:44)
[2018-10-18 12:33] LABS: PLATELET ESTIMATE NORMAL
[2018-10-18] MEDS ORDERED: SODIUM CHLORIDE 0.9% 10ML VIAL ONE (12:35)
[2018-10-18] MEDS ORDERED: VECURONIUM BROMIDE 10 MG/VIAL IV ONE (12:35)
[2018-10-18] MEDS ORDERED: ETOMIDATE 2MG/ML 10ML VIAL IV ONE (12:35)
[2018-10-18] MEDS ORDERED: PROPOFOL 10MG/ML 100ML 100 ML IV PRN (12:45)
[2018-10-18] MEDS ORDERED: DOPAMINE 400MG/250ML PREMIX 250 ML IV ONE (13:09)
[2018-10-18] MEDS ORDERED: PHENYLEPHRINE 40 MG in DEXT 5% WATER 246 ML IV PRN (13:30)
[2018-10-18] MEDS ORDERED: SODIUM BICARBONATE 8.4% 1 MEQ/ML 50ML SYR IV NR (13:30)
[2018-10-18] MEDS ORDERED: NOREPINEPHRINE 16 MG in DEXT 5% WATER 234 ML IV PRN (13:30)
[2018-10-18] MEDS ORDERED: MAGNESIUM 4 G PREMIX 100 ML IV NR (13:30)
[2018-10-18 13:48] LABS: BG CARBOXYHEMOGLOBIN 0.3 % (0.5-1.5); BG DEOXYHEMOGLOBIN 0.7 % (0.0-5.0); BG FRACTION INSPIRED OXYGEN 100; BG HCO3 ACT 20.2 mmol/L (22.0-26.0); BG METHEMOGLOBIN 0.6 % (0.0-1.5); BG OXYGEN SATURATION 99.3 % (92.0-98.5); BG OXYHEMOGLOBIN 98.4 % (94.0-97.0); BG PCO2 38.1 mmHg (35.0-45.0); BG PH 7.343 (7.350-7.450); BG PO2 > 602.7 mmHg (75.0-100.0); BG SAMPLE SITE RIGHT FEMORAL; BG TIDAL VOLUME(mL) 500 mL; BG VENT MODE VENT - A/C; BG VENT RATE 14 set
[2018-10-18] MEDS ORDERED: SODIUM BICARBONATE 150 MEQ in DEXT 5%/0.45% NACL 1000ML 1,000 ML IV SCH ×2 (14:00→20:15)
[2018-10-18] MEDS: EPINEPHRINE 1 MG in SODIUM CHLORIDE 0.9% 249 ML IV PRN ×2 (14:31→18:34)
[2018-10-18] MEDS ORDERED: SODIUM CHLORIDE 0.9% 500 ML IV ONE (15:15)
[2018-10-18] MEDS: DEXT 5%/0.9% NACL 1,000 ML IV SCH (15:54)
[2018-10-18 16:06] LABS: HEMATOCRIT. 24.2 % (42.0-52.0); HEMOGLOBIN. 7.8 g/dL (14.0-18.0); MEAN CORPUSCULAR HEMOGLOBIN 30.9 pg (28.0-32.0); MEAN CORPUSCULAR VOLUME 95.5 fL (80.0-94.0); MEAN PLATELET VOLUME 8.1 fl (7.4-10.4); PLATELET 147 x1000/uL (130-400); RED BLOOD CELL COUNT 2.53 mill/uL (4.7-6.1); RED CELL DISTRIBUTION WIDTH 18.7 % (11.6-14.6)
[2018-10-18 16:28] LABS: INR 2.7; PROTHROMBIN TIME 26.1 sec (9.6-11.0)
[2018-10-18] MEDS: ENOXAPARIN 60MG/0.6ML SYR SUBCUT SCH (16:30)
[2018-10-18 16:37] LABS: PARTIAL THROMBOPLASTIN TIME 82.2 sec (23.4-31.0)
[2018-10-18 16:42] LABS: NUCLEATED RED BLOOD CELLS 2 /100 WBC; PLATELET ESTIMATE NORMAL
[2018-10-18 17:14] LABS: BG BASE EXCESS -16.5 mmol/L (-2.0-2.0); BG CARBOXYHEMOGLOBIN 0.3 % (0.5-1.5); BG FRACTION INSPIRED OXYGEN 35; BG HCO3 ACT 9.7 mmol/L (22.0-26.0); BG METHEMOGLOBIN 0.2 % (0.0-1.5); BG OXYHEMOGLOBIN 95.5 % (94.0-97.0); BG PCO2 24.4 mmHg (35.0-45.0); BG PH 7.216 (7.350-7.450); BG PO2 106.8 mmHg (75.0-100.0); BG SAMPLE SITE RIGHT FEMORAL; BG TIDAL VOLUME(mL) 500 mL; BG TOTAL HEMOGLOBIN 8.7 g/dL (12.0-18.0); BG VENT MODE VENT - A/C; BG VENT RATE 14 set
[2018-10-18] MEDS: PHENYLEPHRINE 80 MG in DEXT 5% WATER 492 ML IV PRN (18:09)
[2018-10-18] MEDS: DOPAMINE 400MG/250ML PREMIX 250 ML IV PRN ×2 (19:34→21:52)
[2018-10-18 21:49] LABS: CHLORIDE 111 mEq/L (98-107)
[2018-10-18 21:55] LABS: PHOSPHORUS 5.4 mg/dL (2.5-4.9)
[2018-10-18 21:57] LABS: CREATINE KINASE 201 IU/L (39-308)
[2018-10-18] MEDS: NOREPINEPHRINE 32 MG in DEXT 5% WATER 468 ML IV PRN (21:59)
[2018-10-18 22:00] LABS: CREATINE KINASE MB FRACTION 28.9 ng/mL (0.5-3.6)
[2018-10-18] MEDS: ATORVASTATIN CALCIUM 10MG TABLET PO SCH (22:06)
[2018-10-18] MEDS: DOPAMINE 800MG PREMIX (DOUBLE) 250 ML IV PRN (23:52)
[2018-10-19] VITALS (89 sets, daily range): BP systolic 37–74; BP diastolic 22–51
[2018-10-19] MEDS: EPINEPHRINE 1 MG in SODIUM CHLORIDE 0.9% 249 ML IV PRN (01:22)
[2018-10-19] MEDS: DOPAMINE 800MG PREMIX (DOUBLE) 250 ML IV PRN ×4 (04:54→19:44)
[2018-10-19 05:45] LABS: HEMATOCRIT. 30.2 % (42.0-52.0); HEMOGLOBIN. 9.4 g/dL (14.0-18.0); MEAN CORPUSCULAR HEMOGLOBIN 31.5 pg (28.0-32.0); RED BLOOD CELL COUNT 2.99 mill/uL (4.7-6.1)
[2018-10-19 06:04] LABS: CHLORIDE 108 mEq/L (98-107)
[2018-10-19 06:18] LABS: PHOSPHORUS 5.8 mg/dL (2.5-4.9)
[2018-10-19] MEDS: METOCLOPRAMIDE HCL 10MG/2ML VIAL IV SCH ×4 (07:00→18:30)
[2018-10-19] MEDS: EPINEPHRINE 4 MG in SODIUM CHLORIDE 0.9% 246 ML IV PRN ×2 (07:02→13:23)
[2018-10-19 07:30] LABS: BG BASE EXCESS -21.8 mmol/L (-2.0-2.0); BG CARBOXYHEMOGLOBIN 0.1 % (0.5-1.5); BG DEOXYHEMOGLOBIN 5.7 % (0.0-5.0); BG HCO3 ACT 6.6 mmol/L (22.0-26.0); BG METHEMOGLOBIN 0.1 % (0.0-1.5); BG OXYGEN SATURATION 94.3 % (92.0-98.5); BG OXYHEMOGLOBIN 94.1 % (94.0-97.0); BG PCO2 23.4 mmHg (35.0-45.0); BG PH 7.067 (7.350-7.450); BG PO2 98.2 mmHg (75.0-100.0); BG SAMPLE SITE RIGHT BRACHIAL; BG TIDAL VOLUME(mL) 500 mL; BG VENT MODE VENT - A/C; BG VENT RATE 20 set
[2018-10-19] MEDS: MULTIVITAMINS,THER W-MINERALS TABLET PO SCH (08:01)
[2018-10-19] MEDS: ASPIRIN 81MG TABLET PO SCH (08:01)
[2018-10-19] MEDS: BISACODYL 10MG SUPP PR SCH (09:00)
[2018-10-19] MEDS: CEFTRIAXONE 1 G PREMIX 50 ML IV SCH (09:16)
[2018-10-19] MEDS: PANTOPRAZOLE SODIUM 40 MG/VIAL IV SCH (09:16)
[2018-10-19] MEDS: LEVETIRACETAM 500 MG in SODIUM CHLORIDE 0.9% 100 ML IV SCH (09:16)
[2018-10-19] MEDS ORDERED: SODIUM BICARBONATE 8.4% 1 MEQ/ML 50ML SYR IV NR (09:36)
[2018-10-19] MEDS: PHENYLEPHRINE 80 MG in DEXT 5% WATER 492 ML IV PRN ×2 (10:08→17:43)
[2018-10-19 11:40] LABS: PLATELET 183 x1000/uL (130-400)
[2018-10-19] MEDS ORDERED: SODIUM BICARBONATE 150 MEQ in DEXTROSE 5% WATER 1,000 ML IV SCH (11:40)
[2018-10-19 11:48] LABS: NUCLEATED RED BLOOD CELLS 12 /100 WBC; PLATELET ESTIMATE NORMAL
[2018-10-19] MEDS: NOREPINEPHRINE 32 MG in DEXT 5% WATER 468 ML IV PRN (13:54)
[2018-10-19] MEDS: ENOXAPARIN 60MG/0.6ML SYR SUBCUT SCH (16:30)
[2018-10-19] MEDS ORDERED: EPINEPHRINE 0.1MG/ML (1:10,000) 10ML SYR ONE (21:05)
[2018-10-19] MEDS ORDERED: CALCIUM CHLORIDE 1GM/10ML SYR IV ONE (21:05)
[2018-10-19] MEDS ORDERED: SODIUM BICARBONATE 8.4% MEQ/ML 50ML VIAL IV ONE (21:05)
== END 2018-10-19 21:05 | disposition expired | DRG 720 ==
LOC: ER 23:54 → 8WST 10-14 04:58 → EDBEDREQTM 10-14 05:01 → EDBEDREQ 10-14 05:01 → ENRESERV 10-14 05:37 → CVICU 10-18 12:35
PROVIDERS: ADMIT Internal Medicine; ATTEND Internal Medicine
PROC: 0W9G3ZZ Drainage of Peritoneal Cavity, Percutaneous Approach (ICD-10-PCS; 2018-10-15)
PROC: 5A1D70Z Performance of Urinary Filtration, Intermittent, Less than 6 Hours Per Day (ICD-10-PCS; 2018-10-17)
PROC: 5A1935Z Respiratory Ventilation, Less than 24 Consecutive Hours (ICD-10-PCS; principal; 2018-10-18)
PROC: 5A12012 Performance of Cardiac Output, Single, Manual (ICD-10-PCS; 2018-10-18)
PROC: 0BH17EZ Insertion of Endotracheal Airway into Trachea, Via Natural or Artificial Opening (ICD-10-PCS; 2018-10-18)
PROC: 02HV33Z Insertion of Infusion Device into Superior Vena Cava, Percutaneous Approach (ICD-10-PCS; 2018-10-18)
PROC: B5181ZA Fluoroscopy of Superior Vena Cava using Low Osmolar Contrast, Guidance (ICD-10-PCS; 2018-10-18)
PROC: B548ZZA Ultrasonography of Superior Vena Cava, Guidance (ICD-10-PCS; 2018-10-18)
DX: A41.9 Sepsis, unspecified organism (principal); J96.00 Acute respiratory failure, unspecified whether with hypoxia or hypercapnia; R65.21 Severe sepsis with septic shock; E43 Unspecified severe protein-calorie malnutrition; G93.40 Encephalopathy, unspecified; K56.609 Unspecified intestinal obstruction, unspecified as to partial versus complete obstruction; I82.413 Acute embolism and thrombosis of femoral vein, bilateral; K85.90 Acute pancreatitis without necrosis or infection, unspecified; I46.9 Cardiac arrest, cause unspecified; N17.9 Acute kidney failure, unspecified; E87.2 Acidosis; D68.9 Coagulation defect, unspecified; A04.5 Campylobacter enteritis; E87.1 Hypo-osmolality and hyponatremia; E87.5 Hyperkalemia; K70.31 Alcoholic cirrhosis of liver with ascites; K86.1 Other chronic pancreatitis; R62.7 Adult failure to thrive; K40.90 Unilateral inguinal hernia, without obstruction or gangrene, not specified as recurrent; K80.20 Calculus of gallbladder without cholecystitis without obstruction; K57.90 Diverticulosis of intestine, part unspecified, without perforation or abscess without bleeding; R13.10 Dysphagia, unspecified; G40.909 Epilepsy, unspecified, not intractable, without status epilepticus; E78.5 Hyperlipidemia, unspecified; E11.9 Type 2 diabetes mellitus without complications; E78.00 Pure hypercholesterolemia, unspecified; J44.9 Chronic obstructive pulmonary disease, unspecified; I25.10 Atherosclerotic heart disease of native coronary artery without angina pectoris; M47.897 Other spondylosis, lumbosacral region; D63.8 Anemia in other chronic diseases classified elsewhere; E87.6 Hypokalemia; K70.30 Alcoholic cirrhosis of liver without ascites; I50.42 Chronic combined systolic (congestive) and diastolic (congestive) heart failure; R40.2430 Glasgow coma scale score 3-8, unspecified time; G89.29 Other chronic pain; E83.42 Hypomagnesemia; F10.21 Alcohol dependence, in remission; F17.200 Nicotine dependence, unspecified, uncomplicated; I11.0 Hypertensive heart disease with heart failure; I42.9 Cardiomyopathy, unspecified; K21.9 Gastro-esophageal reflux disease without esophagitis; M48.061 Spinal stenosis, lumbar region without neurogenic claudication; N39.0 Urinary tract infection, site not specified; Z66 Do not resuscitate; Z91.19 Patient's noncompliance with other medical treatment and regimen; Z86.73 Personal history of transient ischemic attack (TIA), and cerebral infarction without residual deficits; Z88.0 Allergy status to penicillin; I25.2 Old myocardial infarction
CPT/HCPCS: 36415; 36600; 49083; 71045; 74018; 74250; 76700; 77001; 78580; 78610; 80048; 80076; 82375; 82550; 82553; 82805; 82962; 83605; 83735; 84100; 84134; 84478; 84484; 93005; 93306; 93971; 94003; 99285; A6261; A9512; C1752; C9113; J0696; J1265; J1650; J1953; J2270; J2370; J2405; J2765; J3475; J3490; J7030; J7040; J7042; J7050; J7060; J7070; Q9963; A4315